=== PATIENT | male | born 1965 | race Caucasian/White ===

== ENCOUNTER 2019-06-21 02:07 | Day surgery (SDC) | payer OTHER, MEDICAID, SELFPAY ==
[2019-06-20 12:35] VITALS: BMI 29.5
[2019-06-21 06:13] VITALS: BP 130/71; PULSE 84; RESP 18; TEMP 36.3; O2SAT 97; BMI 28.6
[2019-06-21] MEDS: LACTATED RINGERS 1,000 ML 150 ML IV CONT (06:46)
--- NOTE | 2019-06-21 06:49 | WPDANESEPPF ---
Anes - Initial Pre Proc Eval Procedure: Operation Date: 06/21/19 07:30 Proposed Procedures p Colonoscopy - Brandt Mahajan MD Date/Time: 06/21/19 06:49 Surgeon: Brandt Mahajan MD Pre Op Diagnosis: GI bleed, anemia Patient Data Age: 54 Gender: M Height: 6 ft 3 in Weight: 104 kg Last Vital Signs Temp 36.3 C L 06/21/19 06:13 Pulse 84 06/21/19 06:13 Resp 18 06/21/19 06:13 BP 130/71 06/21/19 06:13 Pulse Ox 97 06/21/19 06:13 Allergies Allergy/AdvReac Type Severity Reaction Status Date / Time No Known Allergies Allergy Verified 06/21/19 06:12 Home Medications Medication Instructions Recorded Confirmed Type amlodipine 10 mg PO DAILY 06/21/19 06/21/19 History lisinopril-hydrochlorothiazide 1 tablet PO DAILY 06/21/19 06/21/19 History Patient hx anesthesia problems: none Family hx anesthesia problems: none [facility] Past Medical History Medical History Hypertension Anes - Eval Final PreProcedure Day of Procedure 06/21/19 06:49 Patient weight: overweight Heart: regular rate and rhythm Lungs: clear to auscultation Airway: Mallampati scale class 1 Neurological: alert and oriented Last oral intake: >/= 8 hours ASA classification: II Emergent: no Anesthetic plan: proceed Anesthesia type and monitoring: general GIVS and standard monitoring Informed Consent: The patient's anesthetic plan and its attendant risks and benefits were discussed with the patient/family/POA. Questions were solicited and answers provided to the satisfaction of the patient/family/POA.
--- NOTE | 2019-06-21 07:05 | PM.HPGS ---
History of Present Illness History of Present Illness Consent: Risks, benefits, and alternatives have been discussed and questions answered. Patient agrees to proceed with procedure. Chief complaint: GI bleed, anemia Narrative: Dajuan Manzo is a 54 year old male REFERRED BECAUSE OF SEVERE BLOOD LOSS ANEMIA. HE WAS FEELING SOMEWHAT TIRED AND BLOOD WORK REVEALED THAT HIS HEMOGLOBIN WAS DOWN TO 7. THIS WAS ON JUNE 07 A FEW DAYS LATER IT WAS DOWN TO 6.2. MCV IS ALSO QUITE LOW AT 67. He denies anorexia nausea dysphagia heartburn or change in bowel habits. He denies seen blood in the stools or having black or tarry stools. [facility] Past Medical History Medical History Hypertension Meds Home Medications and Allergies Home Medications Medication Instructions Recorded Confirmed Type amlodipine 10 mg PO DAILY 06/21/19 06/21/19 History lisinopril-hydrochlorothiazide 1 tablet PO DAILY 06/21/19 06/21/19 History Allergies Allergy/AdvReac Type Severity Reaction Status Date / Time No Known Allergies Allergy Verified 06/21/19 06:12 Vital Signs Vital Signs - 24 hr 06/21/19 06:13 Temperature 36.3 C L Pulse Rate 84 Respiratory Rate 18 Blood Pressure 130/71 Pulse Oximetry 97 Exam Resp: Auscultation: clear to auscultation bilaterally Cardio: Rate: regular rate Rhythm: regular rhythm GI: GI Palp: Yes Soft to palpation and No Tenderness to palpation present (GI) Assessment and Plan Assessment and plan (1) Anemia due to acute blood loss: Code(s): D62 - Acute posthemorrhagic anemia Status: Acute Assessment and Plan: Colonoscopy with possible biopsy or polypectomy or cautery or injection of substances.
[2019-06-21 07:46] VITALS: BP 81/31; PULSE 62; RESP 17; O2SAT 100
[2019-06-21 07:57] VITALS: BP 84/38; PULSE 64; RESP 16; O2SAT 100
[2019-06-21 08:06] VITALS: BP 92/48; PULSE 70; RESP 15; O2SAT 100
== END 2019-06-21 08:18 | disposition home or self-care (01) ==
PROVIDERS: PCP Internal Medicine; Visit Provider Internal Medicine Gastroenterology
PROC: 0DJD8ZZ Inspection of Lower Intestinal Tract, Via Natural or Artificial Opening Endoscopic (ICD-10-PCS; CPT 45378; principal; 2019-06-21 07:30)
DX: C18.2 Malignant neoplasm of ascending colon (principal); D12.4 Benign neoplasm of descending colon; K62.1 Rectal polyp; D50.0 Iron deficiency anemia secondary to blood loss (chronic); I10 Essential (primary) hypertension
CPT/HCPCS: 45385; 45381; 45380; 88304; 88305; J2704; J7120

== ENCOUNTER 2019-06-28 11:29 | Outpatient (CLI) | payer OTHER, MEDICAID, SELFPAY ==
--- NOTE | ~2019-06-28 | CT_ITS ---
EXAMINATION: CT abdomen pelvis w con DATE: 06/28/2019 12:16 INDICATION: Colon cancer. TECHNIQUE: Computed tomography (CT) of the abdomen and pelvis was performed with 100 mL Omnipaque 350 intravenous contrast. Automated exposure control and iterative reconstruction technique were employe d. The dose-length product was 778.63 mGy-cm. COMPARISON: None. FINDINGS: The visualized portions of the lung bases demonstrate mild atelectasis. A calcified right l len nodule and calcified right hilar lymph nodes are consistent with old granulomatous disease. No pl eural effusion. The heart size is normal. No pericardial effusion. The liver and spleen are normal. T here are gallstones in the gallbladder, which is normal in size. The pancreas and adrenal glands are normal. There is cortical thinning of the kidneys. There is a 5 mm cyst in right kidney. The prostate is mildly enlarged. There are no dilated loops of bowel. The appendix is normal. There are no pathol ogically enlarged lymph nodes. There is no free intraperitoneal fluid. There is mild thoracic spondyl osis and moderate lumbar spondylosis. IMPRESSION: 1. No evidence of metastatic disease. Reviewed, dictated and finalized at location A.
[2019-06-28 12:02] LABS: Estimated Glomerular Filt Rate > 60
== END 2019-06-28 11:30 | disposition home or self-care (01) ==
PROVIDERS: PCP Physician Assistant Medical; Visit Provider Internal Medicine Gastroenterology
DX: C18.9 Malignant neoplasm of colon, unspecified (principal)
CPT/HCPCS: 36415; 74177; Q9967

== ENCOUNTER 2019-07-05 14:36 | Inpatient (IN) | payer OTHER, MEDICAID, SELFPAY ==
[2019-07-03 12:51] VITALS: BMI 29.5
[2019-07-05] VITALS (10 sets, daily range): BP systolic 122–149; BP diastolic 71–91; PULSE 63–102; RESP 12–20; TEMP 36.1–37.1; O2SAT 100
--- NOTE | 2019-07-05 09:38 | ECG_ITS ---
Measurements Intervals [place] Rate: 84 P: 55 SD: 156 QRS: 53 QRSD: 88 T: 39 QT: 391 QTc: 463 Interpretive Statements SINUS RHYTHM NORMAL ECG Electronically Signed On 07-05-2019 11:20:02 CDT by Sam Teresa D.O.
[2019-07-05] MEDS: LACTATED RINGERS 1,000 ML 30 ML IV CONT ×2 (10:15→13:35)
--- NOTE | 2019-07-05 10:58 | WPDHPUPDATE1 ---
History and Physical Update Update Date/Time: 07/05/19 10:58 History and Physical has been reviewed, including an updated exam of the patient. There are NO changes in the patient's condition. Risks, benefits, and alternatives have been discussed and questions answered. Patient agrees to proceed with procedure.
--- NOTE | 2019-07-05 11:03 | WPDANESEPPF ---
Anes - Initial Pre Proc Eval Procedure: Operation Date: 07/05/19 11:30 Proposed Procedures p Hand Assisted Laparoscopic Right Hemicolectomy - Cb Moreau DO Date/Time: 07/05/19 11:03 Surgeon: Cb Moreau DO Pre Op Diagnosis: Ascending Colon Ca Patient Data Age: 54 Gender: M Height: 6 ft 3 in Weight: 103.5 kg Last Vital Signs Temp 97.6 F 07/05/19 09:36 Pulse 102 H 07/05/19 09:36 Resp 20 07/05/19 09:36 BP 129/76 07/05/19 09:36 Pulse Ox 100 07/05/19 09:36 Allergies Allergy/AdvReac Type Severity Reaction Status Date / Time No Known Allergies Allergy Verified 07/05/19 10:34 Home Medications Medication Instructions Recorded Confirmed Type amlodipine 10 mg PO DAILY 06/21/19 07/05/19 History lisinopril-hydrochlorothiazide 1 tablet PO DAILY 06/21/19 07/05/19 History ferrous sulfate [Iron (ferrous 650 mg PO DAILY 07/03/19 07/05/19 History sulfate)] Patient hx anesthesia problems: none Family hx anesthesia problems: none Anes - Eval Final PreProcedure Day of Procedure 07/05/19 11:03 Patient weight: overweight Heart: regular rate and rhythm Lungs: clear to auscultation Airway: Mallampati scale class II Neurological: alert and oriented Last oral intake: >/= 8 hours ASA classification: II Emergent: no Anesthetic plan: proceed Anesthesia type and monitoring: general ETT and standard monitoring Informed Consent: The patient's anesthetic plan and its attendant risks and benefits were discussed with the patient/family/POA. Questions were solicited and answers provided to the satisfaction of the patient/family/POA.
[2019-07-05] MEDS: ceFAZolin 2 GM/D5W 50 ML 2 GM/50 ML BAG IVPB (11:27)
[2019-07-05] MEDS: metroNIDAZOLE 500 MG/ISO 100ML 500 MG/100 ML BAG 100 MG IVPB (12:08)
[2019-07-05] MEDS: IBUPROFEN IV 800 MG/200 ML 800 MG/200 ML BAG 400 MG IVPB (12:20)
--- NOTE | 2019-07-05 13:30 | PM.PROC ---
Procedure Note - Detailed Date of procedure: 07/05/19 Pre-op diagnosis: Ascending Colon Ca Post-op diagnosis: same Procedure performed: Hand assisted laparoscopic right hemicolectomy with ileocolic anastomosis Description of procedure: Procedure as well as risks benefits and alternatives were explained to the patient. Written consent was obtained and placed in chart prior to procedure. Patient was brought back to surgical suite. He was placed supine on operating table. Time-out was done to confirm patient procedure. He was then intubated by the anesthesia department. His abdomen was prepped and draped in sterile fashion using chlorhexidine prep. A 7 centimeter vertical incision was made just superior to the umbilicus using a 15 blade scalpel. Electrocautery was used for hemostasis and for dissection down through Cornelia's fascia. The linea alba was identified, and incised using electrocautery. Two [place] clamps were used to lift the fascia anteriorly, and the peritoneum was then entered using electrocautery. The abdomen was inspected and no acute abnormalities were noted. The wound protector was placed at this incision, and the GelPort was applied with a 5 millimeter port placed through it. Carbon dioxide insufflation was used to create a pneumoperitoneum. The camera was inserted and the abdominal cavity was inspected. The tattooed region was identified on the proximal ascending colon, and no other abnormalities were noted. The patient was placed in Trendelenburg position and rotated slightly to the left. A 5 millimeter incision was made in the lower midline and a 5 millimeter trocar was inserted under direct visualization. Another 5 millimeter incision was made in the left lower quadrant, and a 5 millimeter trocar was inserted under direct visualization. A transversus abdominis plane block with Exparel was performed under laparoscopic visualization bilaterally. After carefully inspecting the abdominal cavity, I began my dissection from a medial to lateral direction along the ileocolic pedicle. The cecum was tented anteriorly and laterally and this allowed me to visualize the ileocolic pedicle. The medial side and inferior side of the peritoneum was scored using hook electrocautery and the retroperitoneal plane was entered. Careful dissection was performed using hook electrocautery in this relatively avascular plane. The duodenum was identified and swept posteriorly. I then continued to dissect proximally along the ileocolic pedicle. I isolated the ileocolic vein and artery individually and performed a high ligation using bipolar cautery. Hemostasis appeared adequate. I then continued the medial to lateral dissection maintaining this avascular plane. I also dissected along the transverse colon to the right side all the way to the level of the hepatic flexure. The terminal ileum and appendix were then retracted medially and the lateral peritoneal attachments were taken down using hook electrocautery. The root of the mesentery was then carefully taken down proximally to allow adequate mobilization of the small bowel for our anastomosis. The lateral peritoneal attachments of the ascending colon were then taken down using hook electrocautery. The hepatic flexure was taken down using ligasure bipolar cautery. Once this was completed I gained adequate mobilization of the entire ascending and proximal transverse colon to exteriorize and perform our resection and anastomosis. The patient was flattened out in bed, and the cecum was grasped and delivered through the wound protector. The pneumoperitoneum was released. I carefully delivered the entire ascending and proximal transverse colon out through the hand port incision. The specimen was inspected and appeared to have adequate mobilization beyond the tattoo to perform our resection. The transverse colon was cleared of the epiploic appendages and omentum and a NETTA 75 millimeter blue load stapler was advance
--- NOTE | 2019-07-05 14:22 | SUR.PHASEI ---
3152 SPOKE WITH PTS SISTER DURAN PER PHONE- UPDATE GIVEN. 3RD MED/SURG PHONE # GIVEN TO HER.
[2019-07-05] MEDS: LACTATED RINGERS 1,000 ML 100 ML IV CONT (16:10)
[2019-07-05] MEDS: ACETAMINOPHEN 500 MG TABLET 1000 MG PO ×2 (17:08→23:36)
[2019-07-05] MEDS: ENOXAPARIN 30 MG/0.3 ML SYRINGE SUB-Q (20:32)
[2019-07-06 02:00] VITALS: BP 151/74; PULSE 77; RESP 16; TEMP 37.2; O2SAT 99
[2019-07-06] MEDS: LACTATED RINGERS 1,000 ML 100 ML IV CONT (02:12)
[2019-07-06] MEDS: ACETAMINOPHEN 500 MG TABLET 1000 MG PO (05:53)
[2019-07-06 06:00] VITALS: BP 145/74; PULSE 79; RESP 6; TEMP 36.3; O2SAT 98
[2019-07-06 06:25] LABS: Basophils Percent Auto 0.2 % (0.2-1.2); Hematocrit 26.7 % (42.0-52.0); Hemoglobin 7.8 g/dL (14.0-18.0); Immature Granulocyte Absolute 0.09 K/mm3 (0.00-0.031); Immature Granulocyte Percent A 0.7 % (0-0.5); Lymphocytes Absolute Auto 1.25 K/mm3 (0.9-3.2); Lymphocytes Percent Auto 9.1 % (18.3-44.2); Mean Corpuscular HGB Conc 29.2 g/dl (32-36); Mean Platelet Volume 9.7 fl (7.4-10.4); Monocytes Percent Auto 7.4 % (2.6-8.5); Neutrophils Absolute Auto 11.4 K/mm3 (1.3-6.7); Neutrophils Percent Auto 82.6 % (45.5-73.1); Platelet Count Result 524 k/mm3 (150-375); Red Blood Count 3.71 M/mm3 (4.6-6.20); Red Cell Distribution Width 22.5 % (11.5-14.5); White Blood Count 13.8 K/mm3 (4.5-10.0)
[2019-07-06 06:37] LABS: Blood Urea Nitrogen 13 mg/dL (9-20); Calcium 8.7 mg/dL (8.4-10.2); Carbon Dioxide 26 mmol/L (22-30); Chloride 99 mmol/L (98-107); Estimated CRCL calculation 91 ml/min; Estimated Glomerular Filt Rate > 60; Glucose 119 mg/dL (75-110); Potassium 4.2 mmol/L (3.4-5.0); Sodium 132 mmol/L (137-145)
--- NOTE | 2019-07-06 07:57 | PM.PNGS ---
Progress Note: A&P Assessment and Plan (1) Anemia due to chronic blood loss: Code(s): D50.0 - Iron deficiency anemia secondary to blood loss (chronic) Status: Acute Assessment and Plan: Hemoglobin 7.8 and no hemodynamic affects. Will recheck CBC in a.m. tomorrow. (2) Ascending colon malignant neoplasm: Code(s): C18.2 - Malignant neoplasm of ascending colon Status: Acute Assessment and Plan: Doing well postop day 1. After right hemicolectomy, laparoscopic assisted. Encouraged, IS, walk in the hallway, and liquid diet. Told patient he could advance diet further once he has a bowel movement. Subjective Subjective Date/Time Seen: 07/06/19 07:57 Pt. denies any problems. No flatus or BM yet. Tolerating clear liquids. Review of Systems Constitutional: Constitutional: Reports no additional constitutional complaints ENT: Reports other (Mucous Membranes moist.) Cardiovascular: Cardiovascular: Denies dyspnea Respiratory: Respiratory: Denies pain on inspiration and Denies dyspnea Gastrointestinal: Gastrointestinal: Reports abdominal pain (mild, incisional) Musculoskeletal: Musculoskeletal: Reports other (No calf swelling or edema) Integumentary/Breasts: Skin/Breast: Reports system reviewed and no additional complaints, except as docu Exam Const: General: cooperative, no acute distress, alert and awake Orientation/consciousness: patient oriented x3 HENMT: Mouth: Yes moist mucous membranes Neck: Neck: normal visual inspection Chest: Chest palpation & inspection: normal inspection of the chest Resp: Effort & Inspection: normal respiratory effort Auscultation: clear to auscultation bilaterally Cardio: Jugular venous distension: no JVD Rate: regular rate Rhythm: regular rhythm GI: Inspection: incision ( All 3 incisions clean and dry with surgical glue in place. ) Auscultation: normal bowel sounds Rectal Exam: deferred Other: no erythema surrounding incisions. Neuro: General: patient oriented x3 and moves all extremities Speech: normal speech Extrem: General: normal exam except as noted Psych: Mental Status: mental status grossly normal Speech and movement: Normal speech and movement present Affect: normal affect Thought content: Yes Normal thought content present Objective Data Vital Signs Vital Signs: Vital Signs - 24 hr 07/05/19 09:36 07/05/19 13:35 07/05/19 13:50 Temperature 36.4 C 36.1 C L Pulse Rate 102 H 69 64 Respiratory Rate 20 12 12 Blood Pressure 129/76 145/91 H 136/80 Pulse Oximetry 100 100 100 07/05/19 14:05 07/05/19 14:20 07/05/19 14:35 Temperature 37.0 C Pulse Rate 63 68 74 Respiratory Rate 12 14 14 Blood Pressure 135/80 139/86 128/75 Pulse Oximetry 100 100 100 07/05/19 14:50 07/05/19 15:05 07/05/19 18:19 Temperature 37.1 C 36.4 C Pulse Rate 69 65 70 Respiratory Rate 16 15 14 Blood Pressure 122/79 124/74 127/71 Pulse Oximetry 100 100 100 07/05/19 22:00 07/06/19 02:00 07/06/19 06:00 Temperature 37.0 C 37.2 C 36.3 C L Pulse Rate 94 77 79 Respiratory Rate 16 16 6 L Blood Pressure 149/86 H 151/74 H 145/74 H Pulse Oximetry 100 99 98 Intake/Output Intake/Output: Intake & Output 07/03/19 07/04/19 07/05/19 07/06/19 23:59 23:59 23:59 23:59 Intake Total 1900 1928 Output Total 1450 Balance 1900 478 Meds/Results Medications: Active Medications Generic Name Dose Route Start Last Admin Trade Name Gonzalo PRN Reason Stop Dose Admin Acetaminophen 1,000 mg 07/05/19 18:00 07/06/19 05:53 Tylenol Tablet PO 1,000 mg Q6HR RY Administration Amlodipine Besylate 10 mg 07/06/19 09:00 Norvasc PO 08/05/19 09:01 DAILY [facility] Enoxaparin Sodium 30 mg 07/05/19 21:00 07/05/19 20:32 Lovenox SUB-Q 30 mg Q12HR RY Administration Hydrochlorothiazide 12.5 mg 07/06/19 09:00 Hydrochlorothiazide PO 08/05/19 09:01 DAILY [facility] Hydromorphone HCl 1 mg 07/05/19 14:36 Dilaudid Inj IV
[2019-07-06] MEDS: ENOXAPARIN 30 MG/0.3 ML SYRINGE SUB-Q ×2 (08:49→20:37)
[2019-07-06] MEDS: hydroCHLOROthiazide 12.5 MG CAPSULE PO (08:49)
[2019-07-06] MEDS: AMLODIPINE BESYLATE 5 MG TABLET 10 MG PO (08:50)
[2019-07-06] MEDS: lisinopriL 20 MG TABLET PO (08:50)
--- NOTE | 2019-07-06 09:20 | WPDANESPN ---
Anes - Prog Note Post-Op Date/Time: 07/06/19 09:20 Cardiovascular status: normal Respiratory status: normal Airway patency: baseline Mental status: baseline Post-Op hydration status: normal Vital Signs: Last Vital Signs Temp 36.3 C L 07/06/19 06:00 Pulse 79 07/06/19 06:00 Resp 6 L 07/06/19 06:00 BP 145/74 H 07/06/19 06:00 Pulse Ox 98 07/06/19 06:00 I/O: Intake & Output 07/05/19 07/06/19 07/06/19 23:59 07:59 15:59 Intake Total 1150 1928 Output Total 1450 Balance 1150 478 Laboratory Tests 07/06/19 05:37 07/06/19 05:37 07/05/19 07/06/19 07/06/19 09:54 05:37 05:37 WBC 13.8 H RBC 3.71 L Hgb 7.8 L Hct 26.7 L MCV 72.0 L MCH 21.0 L MCHC 29.2 L RDW 22.5 H Plt Count 524 H MPV 9.7 Immature Gran % (Auto) 0.7 H Neut % (Auto) 82.6 H Lymph % (Auto) 9.1 L [place] % (Auto) 7.4 Eos % (Auto) 0.0 Baso % (Auto) 0.2 Lymph # (Auto) 1.25 [place] # (Auto) 1.0 H Eos # (Auto) 0.0 Baso # (Auto) 0.0 Abs Immat Gran (auto) 0.09 H Absolute Neuts (auto) 11.4 H Absolute Nucleated RBC 0.0 Nucleated RBC % 0.0 Sodium 132 L Potassium 4.2 Chloride 99 Carbon Dioxide 26 BUN 13 Creatinine 1.00 Estim Creat Clear Calc 91 Estimated GFR > 60 Glucose 119 H Calcium 8.7 Blood Type B Positive Antibody Screen Negative Post-procedural complaints: none Patient Feedback: Patient satisfied with anesthetic care.
[2019-07-06 10:00] VITALS: BP 140/73; PULSE 79; RESP 16; TEMP 37.3; O2SAT 99
[2019-07-06 14:00] VITALS: BP 123/73; PULSE 87; RESP 16; TEMP 37.1; O2SAT 100
[2019-07-06 18:00] VITALS: BP 152/85; PULSE 61; RESP 16; TEMP 36.5; O2SAT 100
[2019-07-06 22:00] VITALS: BP 112/66; PULSE 76; RESP 16; TEMP 36.7; O2SAT 98
[2019-07-07 02:00] VITALS: BP 103/61; PULSE 64; RESP 16; TEMP 36.7; O2SAT 97
[2019-07-07 05:48] LABS: Blood Urea Nitrogen 13 mg/dL (9-20); Calcium 8.9 mg/dL (8.4-10.2); Carbon Dioxide 29 mmol/L (22-30); Chloride 96 mmol/L (98-107); Estimated CRCL calculation 91 ml/min; Estimated Glomerular Filt Rate > 60; Glucose 98 mg/dL (75-110); Sodium 132 mmol/L (137-145)
[2019-07-07 05:57] LABS: Hematocrit 27.2 % (42.0-52.0); Hemoglobin 7.9 g/dL (14.0-18.0); Mean Corpuscular Hemoglobin 21.2 pg (26-34); Mean Corpuscular Volume 72.9 fl (80-100); Mean Platelet Volume 9.3 fl (7.4-10.4); Platelet Count Result 457 k/mm3 (150-375); Red Blood Count 3.73 M/mm3 (4.6-6.20); Red Cell Distribution Width 22.9 % (11.5-14.5); White Blood Count 9.8 K/mm3 (4.5-10.0)
[2019-07-07 06:00] VITALS: BP 116/64; PULSE 77; RESP 16; TEMP 36.7; O2SAT 96
[2019-07-07] MEDS: hydroCHLOROthiazide 12.5 MG CAPSULE PO (08:22)
[2019-07-07] MEDS: lisinopriL 20 MG TABLET PO (08:22)
[2019-07-07] MEDS: AMLODIPINE BESYLATE 5 MG TABLET 10 MG PO (08:22)
[2019-07-07] MEDS: ENOXAPARIN 30 MG/0.3 ML SYRINGE SUB-Q (08:23)
--- NOTE | 2019-07-07 08:50 | PM.DS ---
DS: Diagnosis Admitting Diagnosis Admitting Diagnosis: Ascending colon cancer Discharge Diagnosis (1) Ascending colon malignant neoplasm: Code(s): C18.2 - Malignant neoplasm of ascending colon Status: Acute (2) Anemia due to chronic blood loss: Code(s): D50.0 - Iron deficiency anemia secondary to blood loss (chronic) Status: Acute (3) Hypertension: Qualifiers: Hypertension type: essential hypertension Qualified Code(s): I10 - Essential (primary) hypertension Code(s): I10 - Essential (primary) hypertension Status: Acute DS: Summary Hospital Course Reason for hospitalization: Ascending colon cancer Hospital Course: This is a 54-year-old man who recently underwent colonoscopy and was found to have a malignant-appearing mass in the proximal ascending colon. Biopsies confirmed adenocarcinoma. His preoperative CT abdomen and pelvis showed no evidence of metastases and his preoperative CEA level was 1.5. He presented for hand assisted laparoscopic right hemicolectomy. Surgery was uncomplicated and he was admitted to the hospital postoperatively. He was started on clear liquid diet and pain was controlled with IV pain meds. On postop day 1 he was doing well and tolerating clear liquids without any bloating or nausea. He was advanced to a full liquid diet and transitioned to oral pain meds. On postop day 2 he was advanced to a soft regular diet. He was passing flatus but had not had a bowel movement yet. He was tolerating his diet and ambulating with minimal difficulty. He was discharged on postop day 2. Pathology is still pending at the time of discharge. Status at Discharge Functional status at discharge: independent ambulation Overall status at discharge: patient is progressing back to baseline Time Spent with Patient Time attestation: Total time spent providing and/or coordinating discharge services: Time spent: Less than 30 minutes Exam Const: General: comfortable and no acute distress Resp: Effort & Inspection: normal respiratory effort Auscultation: clear to auscultation bilaterally Cardio: Rate: regular rate Rhythm: regular rhythm GI: Inspection: non-distended GI Palp: Yes Soft to palpation Auscultation: normal bowel sounds DS: Data Data Completed and Pending Pending studies at discharge: Pending at discharge 07/05/19 12:50 Surgical [PTH] Routine Labs on day of discharge: Labs from last 24 hours 07/07/19 07/07/19 05:16 05:16 WBC 9.8 RBC 3.73 L Hgb 7.9 L Hct 27.2 L MCV 72.9 L MCH 21.2 L MCHC 29.0 L RDW 22.9 H Plt Count 457 H MPV 9.3 Sodium 132 L Potassium 4.0 Chloride 96 L Carbon Dioxide 29 BUN 13 Creatinine 1.00 Estim Creat Clear Calc 91 Estimated GFR > 60 Glucose 98 Calcium 8.9 Discharge Plan Discharge Attending physician on discharge: Cb Moreau Discharging Clinician: Cb Moreau Patient Disposition: Home, Self-Care Activity: other - see discharge instructions Diet: regular Wound Care Instructions: follow printed instructions Discharge Instructions: May shower, no bathing or soaking for [address] in 3 days or when no longer taking narcotic pain meds. No lifting > 10 pounds x6 weeks. If no bowel movement x 48 hours, take OTC laxative like Milk of Magnesia or MiraLax. Patient Instructions: Antibiotic Form Stand Alone Forms: General Discharge Information Follow-up/Referrals: Cb Moreau DO [Physician] - 2 Weeks Discharge Medications: New hydrocodone-acetaminophen [[place]] 5-325 mg tablet 1 - 2 tablet PO Q4H PRN (Reason: pain) Qty: 10 RF: 0 Continued ferrous sulfate [Iron (ferrous sulfate)] 325 mg (65 mg iron) Tablet 650 mg PO DAILY RF: 0 lisinopril-hydrochlorothiazide 20-12.5 mg Tablet 1 tablet PO DAILY RF: 0 amlodipine capsule 10 mg PO DAILY RF: 0 Date of admission: 07/05/19 14:36 Primary Car
== END 2019-07-07 10:25 | disposition home or self-care (01) | DRG 330 ==
LOC: ANH3MEDSUR 14:42
PROVIDERS: Admitting Provider Surgery; PCP Physician Assistant Medical; Visit Provider Surgery
PROC: 0DTF4ZZ Resection of Right Large Intestine, Percutaneous Endoscopic Approach (ICD-10-PCS; CPT 44204; principal; 2019-07-05 11:30)
DX: C18.2 Malignant neoplasm of ascending colon (principal); C77.2 Secondary and unspecified malignant neoplasm of intra-abdominal lymph nodes; D50.0 Iron deficiency anemia secondary to blood loss (chronic); I10 Essential (primary) hypertension
CPT/HCPCS: 36415; 80048; 85025; 85027; 86850; 86900; 86901; 88309; 93005; A9270; C9290; J0131; J0690; J1100; J1170; J1650; J1741; J2250; J2405; J2704; J2710; J3010; J7120

== ENCOUNTER 2019-07-27 11:52 | Outpatient (CLI) | payer OTHER, MEDICAID, SELFPAY ==
--- NOTE | ~2019-07-27 | XR_ITS ---
XR chest 2V DATE: 07/27/2019 12:24 INDICATION: Malignant neoplasm of ascending colon TECHNIQUE: PA and lateral views COMPARISON: None FINDINGS: Normal heart size. No hilar or mediastinal enlargement. No pulmonary infiltrate or consolid ation, pleural effusion or pulmonary vascular congestion or pneumothorax. Degenerative spurring of the thoracic spine. IMPRESSION: No active cardiopulmonary disease Reviewed, dictated and finalized at location A.
== END 2019-07-27 11:53 | disposition home or self-care (01) ==
PROVIDERS: PCP Physician Assistant Medical; Visit Provider Internal Medicine Hematology & Oncology
DX: C18.2 Malignant neoplasm of ascending colon (principal)
CPT/HCPCS: 71046

== ENCOUNTER 2019-07-31 06:18 | Outpatient (CLI) | payer OTHER, SELFPAY | END 2019-07-31 06:19 | disposition home or self-care (01) | PROVIDERS: PCP Physician Assistant Medical; Visit Provider Surgery | DX: Z01.818 Encounter for other preprocedural examination (principal); Z11.59 Encounter for screening for other viral diseases | CPT/HCPCS: 87635; C9803; U0003 ==

== ENCOUNTER 2019-07-31 08:25 | Outpatient (CLI) | payer OTHER, MEDICAID, SELFPAY ==
[2019-07-31 09:20] LABS: Basophils Absolute Auto 0.1 K/mm3 (0.0-0.1); Eosinophils Absolute Auto 0.7 K/mm3 (0-0.3); Eosinophils Percent Auto 5.7 % (0-4.4); Hemoglobin 9.5 g/dL (14.0-18.0); Immature Granulocyte Absolute 0.11 K/mm3 (0.00-0.031); Lymphocytes Absolute Auto 2.98 K/mm3 (0.9-3.2); Lymphocytes Percent Auto 26.1 % (18.3-44.2); Mean Corpuscular HGB Conc 30.6 g/dl (32-36); Mean Corpuscular Hemoglobin 23.5 pg (26-34); Mean Corpuscular Volume 76.5 fl (80-100); Mean Platelet Volume 10.2 fl (7.4-10.4); Monocytes Absolute Auto 0.9 K/mm3 (0.1-0.6); Monocytes Percent Auto 7.7 % (2.6-8.5); Neutrophils Absolute Auto 6.7 K/mm3 (1.3-6.7); Neutrophils Percent Auto 58.5 % (45.5-73.1); Platelet Count Result 444 k/mm3 (150-375); Red Blood Count 4.05 M/mm3 (4.6-6.20); Red Cell Distribution Width 23.1 % (11.5-14.5); White Blood Count 11.4 K/mm3 (4.5-10.0)
[2019-07-31 09:29] LABS: INR 0.9; Prothrombin Time 11.5 Seconds (11.1-14.7)
[2019-07-31 09:30] LABS: Partial Thromboplastin Time 23.7 SECONDS (22.3-36.8)
== END 2019-07-31 08:26 | disposition home or self-care (01) ==
LOC: ANHSURGERY 08:26
PROVIDERS: PCP Physician Assistant Medical; Visit Provider Surgery
DX: Z01.818 Encounter for other preprocedural examination (principal); D64.9 Anemia, unspecified; C18.9 Malignant neoplasm of colon, unspecified
CPT/HCPCS: 36415; 85025; 85610; 85730

== ENCOUNTER 2019-08-02 01:04 | Day surgery (SDC) | payer OTHER, SELFPAY ==
[2019-07-28 16:26] VITALS: BMI 28.8
--- NOTE | ~2019-08-02 | XR_ITS ---
EXAMINATION: XR chest port-a-cath/central DATE: 08/02/2019 08:22 INDICATION: Status post port catheter placement TECHNIQUE: frontal view of the chest was obtained. COMPARISON: Chest radiograph dated 07/27/2019 FINDINGS: Right internal jugular central venous port catheter with distal tip at the caudal superior vena cava. Lungs remain clear with no focal airspace opacities, pulmonary edema, pleural effusion or pneumothor ax. The cardiomediastinal silhouette is normal. Mild thoracic spondylosis. IMPRESSION: 1. No acute cardiopulmonary disease post right internal jugular central venous port catheter placemen t. Reviewed, dictated and finalized at location A. IMPRESSION: 1. No acute cardiopulmonary disease post right internal jugular central venous port catheter placement.
--- NOTE | ~2019-08-02 | XR_ITS ---
EXAMINATION: XR fl guide central line place DATE: 08/02/2019 11:59 INDICATION: Port placement. TECHNIQUE: 2 intraoperative fluoroscopic views of the chest were obtained. I was not present. Fluoros copy exposure time was 11 seconds. COMPARISON: Chest single view 08/02/2019 FINDINGS: There is a right internal jugular port with tip in right atrium. IMPRESSION: 1. Port tip in right atrium. Reviewed, dictated and finalized at location E.
[2019-08-02] MEDS: LACTATED RINGERS 1,000 ML 30 ML IV CONT ×2 (06:29→08:12)
[2019-08-02] MEDS: IBUPROFEN IV 800 MG/200 ML 800 MG/200 ML BAG 400 MG IVPB (06:35)
[2019-08-02 06:37] VITALS: BP 124/75; PULSE 70; RESP 20; TEMP 36.4; O2SAT 100
--- NOTE | 2019-08-02 07:06 | WPDANESEPPF ---
Anes - Initial Pre Proc Eval Procedure: Operation Date: 08/02/19 07:30 Proposed Procedures p Insertion Lauren Cath - Cb Moreau DO Date/Time: 08/02/19 07:06 Surgeon: Cb Moreau DO Pre Op Diagnosis: ascending colon CA Patient Data Age: 54 Gender: M Height: 6 ft 3 in Weight: 107.7 kg Last Vital Signs Temp 36.4 C L 08/02/19 06:37 Pulse 70 08/02/19 06:37 Resp 20 08/02/19 06:37 BP 124/75 08/02/19 06:37 Pulse Ox 100 08/02/19 06:37 Allergies Allergy/AdvReac Type Severity Reaction Status Date / Time No Known Allergies Allergy Verified 07/28/19 16:26 Home Medications Medication Instructions Recorded Confirmed Type lisinopril-hydrochlorothiazide 1 tablet PO BID 06/21/19 07/28/19 History ferrous sulfate [Iron (ferrous 1,300 mg PO DAILY 07/03/19 07/28/19 History sulfate)] amlodipine 10 mg PO DAILY 07/28/19 07/28/19 History Patient hx anesthesia problems: none Family hx anesthesia problems: none PMFSH Past Medical History Medical History Ascending colon malignant neoplasm Hypertension Surgical History Surgical History H/O inguinal hernia repair left, in 1975 Family History Family History Sibling Diabetes mellitus Social History Social History Smoking status: Never smoker Alcohol intake: never Substance use: never Gender identity (if verbalized by the patient): Male Spiritual care concerns: No Agree to blood products: Yes Anes - Eval Final PreProcedure Day of Procedure 08/02/19 07:06 Patient weight: overweight Heart: regular rate and rhythm Lungs: clear to auscultation Airway: Mallampati scale class II and special considerations poor dentition Neurological: alert and oriented Last oral intake: >/= 8 hours ASA classification: III Emergent: no Anesthetic plan: proceed Anesthesia type and monitoring: general GIVS and standard monitoring Informed Consent: The patient's anesthetic plan and its attendant risks and benefits were discussed with the patient/family/POA. Questions were solicited and answers provided to the satisfaction of the patient/family/POA.
--- NOTE | 2019-08-02 07:08 | WPDHPUPDATE1 ---
History and Physical Update Update Date/Time: 08/02/19 07:08 History and Physical has been reviewed, including an updated exam of the patient. There are NO changes in the patient's condition. Risks, benefits, and alternatives have been discussed and questions answered. Patient agrees to proceed with procedure.
[2019-08-02] MEDS: ceFAZolin 2 GM/D5W 50 ML 2 GM/50 ML BAG IVPB (07:21)
[2019-08-02] MEDS: LIDO 1%/EPINEPHRINE 1:100,000 20 ML VIAL 10 ML INFILTRATE (07:41)
[2019-08-02] MEDS: HEPARIN SODIUM, PORCINE 10,000 UNITS/10 ML VIAL 3000 UNITS IV PUSH (07:42)
[2019-08-02] MEDS: HEPARIN SODIUM 5,000 UNITS/ML VIAL 5000 UNITS IRRIGATION (07:43)
[2019-08-02 08:15] VITALS: BP 125/68; PULSE 90; RESP 14; O2SAT 95
--- NOTE | 2019-08-02 08:18 | PM.PROC ---
Procedure Note - Detailed Date of procedure: 08/02/19 Pre-op diagnosis: ascending colon CA Post-op diagnosis: same Procedure performed: Right internal jugular Port-A-Cath placement using ultrasound and fluoroscopic guidance Description of procedure: Procedure as well as risks, benefits, and alternatives were discussed with patient. Written consent was obtained and placed in chart prior to procedure. Patient was brought back to surgical suite. Was placed supine on operating table. Time-out was done confirm patient procedure. IV sedation was then administered by the Anesthesia Department. The chest and neck area was prepped and draped in sterile fashion using chlorhexidine prep. Patient was placed in Trendelenburg position. SonoSite ultrasound was used to identify the right internal jugular vein. It was visualized as a compressible vessel just lateral to the carotid artery. 1% lidocaine with epinephrine was infiltrated directly over the vessel under ultrasound guidance. An 18 gauge introducer needle was then advanced under ultrasound guidance directly into the right internal jugular vein. Dark nonpulsatile blood was aspirated. A 0.035 in guidewire was then advanced through the needle under fluoroscopic guidance. The guidewire was visualized advancing all the way down into the superior vena cava. 1% lidocaine with epinephrine was then infiltrated on the right anterior chest and along the tract up to the guidewire insertion site. A 3 cm incision was made with a 15 blade scalpel, and electrocautery was then used for dissection down through the subcutaneous tissue to the pectoral fascia. A pocket was created just inferior to the incision using blunt dissection. A small shakira incision was then also made at the insertion site at the neck. The tunneler was then advanced from the chest incision up to the neck incision and the catheter tubing was brought up through this tract. The dilator and sheath were then advanced over the guidewire under fluoroscopic visualization. The dilator and guidewire were then removed leaving the sheath in place. The catheter tubing was then advanced through the sheath under fluoroscopic guidance. The sheath was unsnapped and carefully peeled away. The catheter tubing was released underneath the neck incision. Fluoroscopy was used to confirm proper placement of the catheter tubing and no kinks along its path. The catheter was then cut to proper length and secured to the port. The port was then accessed with a Quintana needle and aspirated and flushed with heparinized saline. The port function with ease. The port was then hep-locked with Hep-Lock solution. The port was then placed within the pocket that was created, and was secured to the fascia using 3 0 Prolene simple interrupted sutures. The patient was flattened out in bed. Cornelia's fascia was reapproximated using 3 0 Vicryl simple interrupted sutures. The skin of the incisions was then approximated using 4-0 Monocryl subcuticular suture. Exofin glue was then applied on top. The patient was then awakened from anesthesia and transferred to recovery. Implants: Smart Port CT port Anesthesia: MAC and local (1% lidocaine with epinephrine) Surgeon: Cb Moreau DO Estimated blood loss (mL): 5 Complications: No immediate complications Condition: stable Disposition: same day Findings: SonoSite ultrasound was used to identify the right internal jugular vein. This was visualized as a compressible vessel just lateral to the carotid artery. An 18 gauge introducer needle was inserted under ultrasound guidance. Dark nonpulsatile blood was aspirated. Fluoroscopy was then used to guide the placement of the guidewire followed by dilator and sheath. The final fluoroscopic images demonstrated catheter tip at the distal SVC and no kinks along its path.
[2019-08-02 08:36] VITALS: BP 126/79; PULSE 68; RESP 16
== END 2019-08-02 08:50 | disposition home or self-care (01) ==
PROVIDERS: PCP Physician Assistant Medical; Visit Provider Surgery
PROC: (CPT 36561; principal; 2019-08-02 07:30)
DX: C18.2 Malignant neoplasm of ascending colon (principal); I10 Essential (primary) hypertension
CPT/HCPCS: 36561; 77001; C1788; J0690; J1100; J1644; J1741; J2250; J2405; J2704; J3010; J7030; J7120

== ENCOUNTER 2019-10-19 11:26 | Outpatient (CLI) | payer OTHER, SELFPAY ==
--- NOTE | 2019-10-19 | ECG_ITS ---
Measurements Intervals [place] Rate: 132 P: 72 MO: 140 QRS: 76 QRSD: 77 T: 62 QT: 286 QTc: 424 Interpretive Statements SINUS TACHYCARDIA ABNORMAL ECG Electronically Signed On 10-19-2019 12:51:20 CDT by Sam Teresa D.O.
== END 2019-10-19 11:27 | disposition home or self-care (01) ==
PROVIDERS: PCP Physician Assistant Medical; Visit Provider Internal Medicine Hematology & Oncology
DX: R00.0 Tachycardia, unspecified (principal); R94.31 Abnormal electrocardiogram [ECG] [EKG]
CPT/HCPCS: 93005

== ENCOUNTER 2019-10-20 12:33 | Outpatient (CLI) | payer OTHER, SELFPAY ==
[2019-10-20 13:13] LABS: Anion Gap 15.2 mmol/L (7-16); Blood Urea Nitrogen 35 mg/dL (9-20); Calcium 9.4 mg/dL (8.4-10.2); Carbon Dioxide 22 mmol/L (22-30); Chloride 98 mmol/L (98-107); Estimated Glomerular Filt Rate 58; Glucose 136 mg/dL (75-110); Potassium 4.2 mmol/L (3.4-5.0); Sodium 131 mmol/L (137-145)
[2019-10-20 13:32] LABS: Free T4 Free Thyroxine 1.54 ng/mL (0.78-2.19)
[2019-10-20 13:42] LABS: Thyroid Stimulating Hormone 0.772 uIU/mL (0.465-4.680)
== END 2019-10-20 12:34 | disposition home or self-care (01) ==
PROVIDERS: PCP Physician Assistant Medical; Visit Provider Internal Medicine Cardiovascular Disease
DX: R00.0 Tachycardia, unspecified (principal); R55 Syncope and collapse; I10 Essential (primary) hypertension
CPT/HCPCS: 36415; 80048; 84439; 84443

== ENCOUNTER 2020-02-06 07:23 | Outpatient (CLI) | payer OTHER, SELFPAY ==
--- NOTE | ~2020-02-06 | CT_ITS ---
EXAMINATION: CT chest abdomen pelvis w con DATE: 02/06/2020 08:22 INDICATION: Malignant neoplasm of colon. TECHNIQUE: Computed tomography (CT) of the chest, abdomen, and pelvis was performed with 100 mL Omnip aque 350 intravenous contrast. Automated exposure control and iterative reconstruction technique were employed. The dose-length product was 1213.53 mGy-cm. COMPARISON: CT abdomen and pelvis 06/28/19 FINDINGS: CHEST CT: The lungs demonstrate mild atelectasis. A calcified right lung nodule and calcified right hilar and m ediastinal lymph nodes are consistent with old granulomatous disease. There is a pneumatocele in righ t upper lobe. No pleural effusion. The heart size is normal. There are coronary artery calcifications . No pericardial effusion. There is mild mediastinal lymphadenopathy. There is a right internal jugul ar port with tip in right atrium. There is mild chronic anterior wedging of multiple thoracic vertebr al bodies. There is a hemangioma in T6 vertebral body. There is mild thoracic spondylosis. ABDOMEN/PELVIS CT: The liver is normal. There are gallstones in the gallbladder, which is normal in size. There is mild splenomegaly measuring 14.1 cm. The pancreas and adrenal glands are normal. There is cortical thinnin g of the kidneys. There is a 5 mm cyst in right kidney. There are changes of right hemicolectomy. The re are no pathologically enlarged lymph nodes. There are supraumbilical ventral hernias containing fa t. There is fat stranding at the root of the small bowel mesentery. There is trace pelvic ascites. Th ere is moderate right hip osteoarthritis and severe left hip osteoarthritis. There is moderate lumbar spondylosis. IMPRESSION: 1. Fat stranding at the root of the small bowel mesentery, consistent with edema versus inflammation. 2. Mild mediastinal lymphadenopathy, likely reactive. 3. Mild splenomegaly. 4. Supraumbilical ventral hernias containing fat. Reviewed, dictated and finalized at location A. PACKAGER IMPRESSION: 1. Fat stranding at the root of the small bowel mesentery, consistent with pato a versus inflammation. 2. Mild mediastinal lymphadenopathy, likely reactive. 3. Mild splenomegaly. 4. Supraumbilical ventral hernias containing fat.
[2020-02-06 08:20] LABS: Estimated Glomerular Filt Rate > 60
== END 2020-02-06 07:24 | disposition home or self-care (01) ==
PROVIDERS: PCP Physician Assistant Medical; Visit Provider Nurse Practitioner Adult Health
DX: C18.2 Malignant neoplasm of ascending colon (principal); J98.11 Atelectasis; J98.4 Other disorders of lung; K80.80 Other cholelithiasis without obstruction; R16.1 Splenomegaly, not elsewhere classified; N28.1 Cyst of kidney, acquired; M47.815 Spondylosis without myelopathy or radiculopathy, thoracolumbar region; K43.9 Ventral hernia without obstruction or gangrene
CPT/HCPCS: 71260; 74177; Q9967

== ENCOUNTER → 2020-05-17 01:35 | Outpatient (CLI) | payer OTHER, SELFPAY ==
[2020-05-18 08:28] LABS: SARS-CoV-2 RNA PCR Negative
== END ==
PROVIDERS: PCP Physician Assistant Medical; Visit Provider Internal Medicine Gastroenterology
DX: Z01.812 Encounter for preprocedural laboratory examination (principal); Z20.822 Contact with and (suspected) exposure to COVID-19
CPT/HCPCS: C9803; U0003; U0005

== ENCOUNTER 2020-05-20 01:23 | Day surgery (SDC) | payer OTHER, SELFPAY ==
[2020-05-03 10:03] VITALS: BMI 30.2
[2020-05-20 08:25] VITALS: BP 151/90; PULSE 81; RESP 18; TEMP 36.3; O2SAT 98
[2020-05-20] MEDS: LACTATED RINGERS 1,000 ML 150 ML IV CONT (08:34)
--- NOTE | 2020-05-20 09:13 | WPDANESEPPF ---
Anes - Initial Pre Proc Eval Procedure: Operation Date: 05/20/20 09:30 Proposed Procedures p Screening Colonoscopy - David Mcnamara MD Date/Time: 05/20/20 09:13 Surgeon: David Mcnamara MD Pre Op Diagnosis: Neoplasm Screening, Hx of Colon CA Patient Data Age: 55 Gender: M Height: 6 ft 3 in Weight: 106.9 kg Last Vital Signs Temp 97.3 F L 05/20/20 08:25 Pulse 81 05/20/20 08:25 Resp 18 05/20/20 08:25 BP 151/90 H 05/20/20 08:25 Pulse Ox 98 05/20/20 08:25 Allergies Allergy/AdvReac Type Severity Reaction Status Date / Time No Known Allergies Allergy Verified 05/03/20 10:00 Home Medications Medication Instructions Recorded Confirmed Type ferrous sulfate [Iron (ferrous 1,300 mg PO DAILY 07/03/19 05/03/20 History sulfate)] amlodipine 10 mg PO DAILY 07/28/19 05/03/20 History ondansetron 4 mg PO Q6H 08/22/19 05/03/20 History aspirin [Aspir-81] 81 mg PO DAILY 09/04/19 05/03/20 History loperamide [Imodium A-D] 2 mg PO Q4H PRN 09/04/19 05/03/20 History loperamide [Imodium A-D] 2 mg PO Q6H PRN 10/02/19 05/03/20 History megestrol 400 mg PO DAILY 10/02/19 05/03/20 History metoprolol tartrate 25 mg PO BID 10/30/19 05/03/20 History lisinopril 2.5 mg PO DAILY 11/13/19 05/03/20 History Patient hx anesthesia problems: none Family hx anesthesia problems: none PMFSH Past Medical History Medical History Ascending colon malignant neoplasm Hypertension Surgical History Surgical History H/O hemicolectomy H/O inguinal hernia repair left, in 1975 Family History Family History Sibling Diabetes mellitus Social History Social History Smoking status: Never smoker Alcohol intake: never Substance use: never Substance use type: does not use Living arrangements: alone Gender identity (if verbalized by the patient): Male Spiritual care concerns: No Agree to blood products: Yes Anes - Eval Final PreProcedure Day of Procedure 05/20/20 09:13 Patient weight: obese Heart: regular rate and rhythm Lungs: clear to auscultation Airway: Mallampati scale class II Neurological: alert and oriented Last oral intake: >/= 8 hours ASA classification: III Emergent: no Anesthetic plan: proceed Anesthesia type and monitoring: general GIVS and standard monitoring Informed Consent: The patient's anesthetic plan and its attendant risks and benefits were discussed with the patient/family/POA. Questions were solicited and answers provided to the satisfaction of the patient/family/POA.
--- NOTE | 2020-05-20 09:24 | PM.HPGS ---
History of Present Illness History of Present Illness Consent: Risks, benefits, and alternatives have been discussed and questions answered. Patient agrees to proceed with procedure. Chief complaint: Neoplasm Screening, Hx of Colon CA Narrative: Dajuan Manzo is a 55 year old male with ascending colon cancer s/p CHIO right hemicolectomy with ileocolic anastomosis performed on 07/05/19 and chemotherapy. Here to reassess Review of Systems Constitutional: Constitutional: Denies headache(s) and Denies weakness Eyes: Eyes: Denies blurry vision ENT: Reports Normal hearing present, Denies headache(s) and Denies neck pain Cardiovascular: Cardiovascular: Denies chest pain and Denies dyspnea Respiratory: Respiratory: Denies dyspnea Gastrointestinal: Gastrointestinal: Reports no additional gastrointestinal complaints Genitourinary: Genitourinary: Denies dysuria Musculoskeletal: Musculoskeletal: Denies neck pain Integumentary/Breasts: Skin/Breast: Denies dry skin Neurologic: Reports Normal hearing present, Denies headache(s) and Denies weakness Psychiatric: Psychiatric: Denies anxiety Endocrine: Endocrine: Denies change in body appearance Hematologic/Lymphatic: Hematologic/Lymphatic: Denies easy bleeding Allergic/Immunologic: Allergic/Immunologic: Denies urticaria PMFSH Past Medical History Medical History Ascending colon malignant neoplasm Hypertension Surgical History Surgical History H/O hemicolectomy H/O inguinal hernia repair left, in 1975 Family History Family History Sibling Diabetes mellitus Social History Social History Smoking status: Never smoker Alcohol intake: never Substance use: never Substance use type: does not use Living arrangements: alone Gender identity (if verbalized by the patient): Male Spiritual care concerns: No Agree to blood products: Yes Meds Home Medications and Allergies Home Medications Medication Instructions Recorded Confirmed Type ferrous sulfate [Iron (ferrous 1,300 mg PO DAILY 07/03/19 05/03/20 History sulfate)] amlodipine 10 mg PO DAILY 07/28/19 05/03/20 History ondansetron 4 mg PO Q6H 08/22/19 05/03/20 History aspirin [Aspir-81] 81 mg PO DAILY 09/04/19 05/03/20 History loperamide [Imodium A-D] 2 mg PO Q4H PRN 09/04/19 05/03/20 History loperamide [Imodium A-D] 2 mg PO Q6H PRN 10/02/19 05/03/20 History megestrol 400 mg PO DAILY 10/02/19 05/03/20 History metoprolol tartrate 25 mg PO BID 10/30/19 05/03/20 History lisinopril 2.5 mg PO DAILY 11/13/19 05/03/20 History Allergies Allergy/AdvReac Type Severity Reaction Status Date / Time No Known Allergies Allergy Verified 05/03/20 10:00 Vital Signs Vital Signs - 24 hr 05/20/20 08:25 Temperature 97.3 F L Pulse Rate 81 Respiratory Rate 18 Blood Pressure 151/90 H Pulse Oximetry 98 Exam Const: General: comfortable and no acute distress HENMT: General nose exam: Normal nares present Eyes: General: appearance normal, both eyes and all related structures Neck: Neck: no JVD Resp: Auscultation: clear to auscultation bilaterally Cardio: Rate: regular rate Rhythm: regular rhythm GI: Inspection: non-distended GI Palp: Yes Soft to palpation Skin: General skin exam: normal color Neuro: General: gait normal Speech: normal speech Extrem: General: normal to inspection Psych: Mental Status: mental status grossly normal Assessment and Plan Assessment and plan (1) Ascending colon malignant neoplasm: Code(s): C18.2 - Malignant neoplasm of ascending colon Status: Acute Assessment and Plan: proceed with colonoscopy
[2020-05-20 09:43] VITALS: BP 114/61; PULSE 61; RESP 17; O2SAT 98
--- NOTE | 2020-05-20 09:45 | SUR.OPER ---
Descending colon polyp not retrieved. Dr Tidwell aware.
[2020-05-20 09:53] VITALS: BP 143/80; PULSE 55; RESP 15; O2SAT 100
[2020-05-20 10:03] VITALS: BP 165/85; PULSE 53; RESP 18; O2SAT 97
== END 2020-05-20 10:10 | disposition home or self-care (01) ==
PROVIDERS: PCP Physician Assistant Medical; Visit Provider Internal Medicine Gastroenterology
PROC: 0DJD8ZZ Inspection of Lower Intestinal Tract, Via Natural or Artificial Opening Endoscopic (ICD-10-PCS; CPT 45378; principal; 2020-05-20 09:30)
DX: Z12.11 Encounter for screening for malignant neoplasm of colon (principal); K63.5 Polyp of colon; K62.1 Rectal polyp; Z98.0 Intestinal bypass and anastomosis status; K64.8 Other hemorrhoids; Z79.82 Long term (current) use of aspirin; I10 Essential (primary) hypertension; Z85.038 Personal history of other malignant neoplasm of large intestine; E66.9 Obesity, unspecified; Z68.29 Body mass index [BMI] 29.0-29.9, adult; D12.3 Benign neoplasm of transverse colon; Z92.21 Personal history of antineoplastic chemotherapy; Z90.49 Acquired absence of other specified parts of digestive tract
CPT/HCPCS: 45385; 88305; J2704; J7120

== ENCOUNTER 2020-08-19 09:52 | Outpatient (CLI) | payer OTHER, SELFPAY ==
--- NOTE | ~2020-08-19 | CT_ITS ---
EXAMINATION: CT abdomen pelvis w con DATE: 08/19/2020 10:38 INDICATION: Colon cancer TECHNIQUE: Computed tomography (CT) of the abdomen and pelvis was performed with 100 mL Omnipaque-350 intravenous contrast. Automated exposure control and iterative reconstruction technique were employe d. The dose-length product was 1104.36 mGy-cm. COMPARISON: 02/06/2020 FINDINGS: Calcified right lower lobe nodule consistent with old granulomatous disease. Heart size is normal. No pericardial or pleural effusion. Gallstones in the normal-appearing gallbladder with no abnormal wal l thickening or pericholecystic inflammatory change to suggest acute cholecystitis. Liver, spleen, pa ncreas and bilateral adrenal glands are normal. There are regions of cortical scarring at both kidney s. Unchanged 5 mm low-attenuation right renal cyst. Decrease in mild splenomegaly measuring 13.4 cm i n maximal length. Postoperative change of prior right hemicolectomy with ileocolic anastomosis in the right abdomen There is mild colonic diverticulosis with a sigmoid predominance. There is no adjacen t inflammatory change to suggest diverticulitis. No bowel obstruction. Bladder is normal. No free int raperitoneal gas or fluid. No pathologically enlarged abdominal or pelvic lymphadenopathy. A couple s mall wide mouthed fat-containing midline supraumbilical ventral hernias. Interval decrease in now jasvir y subtle groundglass opacity at the root of the mesentery likely related to either edema or inflammat ion. Moderate right and moderate to severe left hip osteoarthritis. Moderate lumbar spondylosis. Unch anged bone islands in the bilateral proximal femurs. IMPRESSION: 1. Status post right hemicolectomy for reported colon cancer. No evident metastatic disease. 2. Improvement in both mild splenomegaly and now subtle fat stranding at the root of the small bowel mesentery, the latter likely related to edema or inflammation. 3. Cholelithiasis. 4. Unchanged fat-containing supraumbilical ventral hernias. Reviewed, dictated and finalized at location A. IMPRESSION: 1. Status post right hemicolectomy for reported colon cancer. No evident metast atic disease. 2. Improvement in both mild splenomegaly and now subtle fat stranding at the ro ot of the small bowel mesentery, the latter likely related to edema or inflamma tion. 3. Cholelithiasis. 4. Unchanged fat-containing supraumbilical ventral hernias.
[2020-08-19 10:25] LABS: Estimated Glomerular Filt Rate > 60
== END 2020-08-19 09:53 | disposition home or self-care (01) ==
PROVIDERS: PCP Physician Assistant Medical; Visit Provider Internal Medicine Hematology & Oncology
DX: C18.2 Malignant neoplasm of ascending colon (principal); K80.20 Calculus of gallbladder without cholecystitis without obstruction; K43.9 Ventral hernia without obstruction or gangrene
CPT/HCPCS: 74177; Q9967

== ENCOUNTER 2021-04-15 08:41 | Outpatient (CLI) | payer OTHER, SELFPAY ==
--- NOTE | ~2021-04-15 | CT_ITS ---
EXAMINATION: CT abdomen pelvis w con DATE: 04/15/2021 09:27 INDICATION: Malignant neoplasm of ascending colon; restaging TECHNIQUE: Computed tomography (CT) of the abdomen and pelvis was performed with 100 cc Omnipaque 350 intravenous contrast. Automated exposure control and iterative reconstruction technique were employe d. Exam dose: 1487.28 mGy-cm total exam DLP. COMPARISON: 08/19/2020 CT abdomen pelvis FINDINGS: Right lower lobe calcified pulmonary granuloma. No infiltrate or consolidation in the lung bases. Normal heart size. Coronary artery calcification. No pericardial or pleural effusion. Gallstones are noted. No gallbladder wall thickening or pericholecystic fluid or fat stranding. No hepatic, splenic, pancreatic, adrenal or renal space-occupying mass lesion is evident. Normal sple rajni size. There is bilateral renal scarring versus persistent lobation. No urinary tract calculus or hydr oureteronephrosis. Normal caliber of the abdominal aorta. No intraperitoneal or retroperitoneal or pelvic mass lesion or adenopathy or ascites. Status post right colon resection; no bowel obstruction, bowel wall thickening, pneumatosis or intrap eritoneal free air is evident. Proximal minimal sigmoid colon diverticulosis; no evidence of divertic ulitis. The prostate gland and urinary bladder is unremarkable. Small bilateral fat-containing inguinal herni as. Small fat-containing umbilical hernia. There are several supraumbilical midline ventral abdominal wall fat-containing hernias., The largest measuring up to 6.8 cm maximal transverse dimension. Diffuse idiopathic skeletal hyperostosis of the thoracic spine. Bilateral hip osteoarthritic arthritis, more severe on the left. No suspicious osteolytic or osteoblastic lesions are noted. IMPRESSION: Status post right partial colectomy for history of colon malignancy; no recurrence or me tastatic disease is identified Minimal sigmoid diverticulosis Cholelithiasis Supraumbilical ventral midline fat-containing abdominal wall hernias Small fat-containing umbilical hernia Small bilateral fat-containing inguinal hernias Reviewed, dictated and finalized at Location A. Reviewed, dictated and finalized at location B. OR STRUCTURAL ENGINEER IMPRESSION: Status post right partial colectomy for history of colon malignanc y; no recurrence or metastatic disease is identified Minimal sigmoid diverticulosis Cholelithiasis Supraumbilical ventral midline fat-containing abdominal wall hernias Small fat-containing umbilical hernia Small bilateral fat-containing inguinal hernias
[2021-04-15 09:20] LABS: Estimated Glomerular Filt Rate > 60
== END 2021-04-15 08:42 | disposition home or self-care (01) ==
PROVIDERS: PCP Physician Assistant Medical; Visit Provider Internal Medicine Hematology & Oncology
DX: C18.2 Malignant neoplasm of ascending colon (principal); K80.20 Calculus of gallbladder without cholecystitis without obstruction; K57.30 Diverticulosis of large intestine without perforation or abscess without bleeding; K42.9 Umbilical hernia without obstruction or gangrene; K40.90 Unilateral inguinal hernia, without obstruction or gangrene, not specified as recurrent
CPT/HCPCS: 74177; Q9967

== ENCOUNTER 2021-11-19 00:26 | Day surgery (SDC) | payer OTHER, SELFPAY ==
[2021-11-10 14:56] VITALS: BMI 29.9
--- NOTE | 2021-11-10 15:01 | PC.NURSE ---
Report to the Outpatient Waiting Room, entrance under the green pavilion located off [facility], at time 1130 on date 11/19/21_. OR Time: _1330___. - You and your visitor will be asked to self-screen and do not enter if you have any COVID symptoms. - Only one visitor and NO children visitors are allowed at this time. - The patient visitor is requested to leave or wait in car when not with patient due to restrictions. - A mask is required within the hospital. Patients may have clear liquids (water, carbonated beverages, clear teas, apple juice) until 3 hours prior to surgery with a maximum of 20 ounces. - No food from midnight until time of surgery - Infants may have breast milk until 4 hours before surgery, formula 6 hours prior to surgery. - Children will be allowed to drink immediately following surgery. If applicable, please bring a bottle or sippy cup to assist with drinking. Juice, water, soda, and popsicles are readily available. For infants on formula, please bring formula the day of surgery. Pacifiers are allowed. Take the following medications with a SIP of water the morning of surgery: AMLODIPINE , METOPROLOL Medications to discontinue per physician CHECK WITH DR. FALCON OFFICE ABOUT ASPIRIN Date to take last dose Please no make-up, nail divehi, hairspray, perfume, deodorant, or body powder the day of surgery. No jewelry (including any body piercings) or valuables the day of surgery, leave them at home. Please take a shower or bath the night before, or the morning of, surgery with HIBICLENS antibacterial soap. Wear comfortable, loose fitting clothing. Children are encouraged to wear pajamas. - Jewelry must be removed prior to entering the operating room. Rings and piercings that are not removed may be cut off. - The hospital will not accept responsibility for valuables. - Please leave all valuables, including medications, at home the day of surgery. If you are going home after surgery, a licensed newspaper delivery driver must drive you home. - NO public transportation without another adult. - We recommend that an adult stay with you for 24 hours following discharge. - We also recommend that you do not drive, make important decision, drink alcoholic beverages, or take any drugs that were not prescribed by your health care provider for at least 24 hours after your discharge time. For Pediatric surgeries, we recommend two adults accompany the child home (only one inside the building at this time). Follow any additional instructions given to you from your surgeon. If you or anyone in your household have experienced Covid symptoms in the past week, please notify your surgeon or the nurse liaison at the phone number below for possible testing. Telephone instructions given to _PATIENT and asked if any additional questions and then verbalized understanding. Patient advised to call surgeon office or pre surgery nurse liaison [phone] if any additional questions.
[2021-11-19 11:58] VITALS: BP 168/88; PULSE 55; RESP 14; TEMP 36.3; O2SAT 100
[2021-11-19] MEDS: LACTATED RINGERS 1,000 ML 30 ML IV CONT (12:05)
--- NOTE | 2021-11-19 13:04 | WPDANESEPPF ---
Anes - Initial Pre Proc Eval Procedure: Operation Date: 11/19/21 13:30 Proposed Procedures p Removal Lauren Cath - Cb Moreau DO Date/Time: 11/19/21 13:04 Surgeon: Cb Moreau DO Pre Op Diagnosis: hx of malignant neoplasm of ascending colon Patient Data Age: 56 Gender: M Height: 1.92 m Weight: 116.6 kg Last Vital Signs Temp 97.4 F L 11/19/21 11:58 Pulse 55 L 11/19/21 11:58 Resp 14 11/19/21 11:58 BP 168/88 H 11/19/21 11:58 Pulse Ox 100 11/19/21 11:58 O2 Del Method Room Air 11/19/21 11:58 Allergies Allergy/AdvReac Type Severity Reaction Status Date / Time No Known Allergies Allergy Verified 11/10/21 14:51 Home Medications Medication Instructions Recorded Confirmed Type amlodipine 10 mg tablet 10 mg PO DAILY 07/28/19 11/10/21 History ondansetron 4 mg disintegrating 4 mg PO Q6H 08/22/19 07/28/21 History tablet aspirin 81 mg tablet,delayed 81 mg PO DAILY 09/04/19 11/10/21 History release (Aspir-) metoprolol tartrate 25 mg tablet 25 mg PO BID 10/30/19 11/10/21 History lisinopril 2.5 mg tablet 2.5 mg PO DAILY 11/13/19 11/10/21 History Patient hx anesthesia problems: none Family hx anesthesia problems: none Results Review: All pre-operative results and documents have been reviewed as part of the pre-operative evaluation. [facility] Past Medical History Medical History Ascending colon malignant neoplasm Hypertension Surgical History Surgical History H/O hemicolectomy H/O inguinal hernia repair left, in 1975 Family History Family History Sibling Diabetes mellitus Social History Social History Smoking status: Never smoker Alcohol intake: former Substance use: never Substance use type: does not use Living arrangements: alone Gender identity (if verbalized by the patient): Male Spiritual care concerns: No Agree to blood products: Yes Anes - Eval Final PreProcedure Day of Procedure 11/19/21 13:04 Patient weight: obese Heart: regular rate and rhythm Lungs: clear to auscultation Airway: Mallampati scale class II Neurological: alert and oriented Last oral intake: >/= 8 hours ASA classification: III Emergent: no Anesthetic plan: proceed Anesthesia type and monitoring: general GIVS and standard monitoring Results Review: All pre-operative results and documents have been reviewed as part of the pre-operative evaluation. Informed Consent: The patient's anesthetic plan and its attendant risks and benefits were discussed with the patient/family/POA. Questions were solicited and answers provided to the satisfaction of the patient/family/POA.
--- NOTE | 2021-11-19 13:37 | PM.IMHP ---
H&P: HPI History of Present Illness Date/Time: 11/19/21 13:37 Chief Complaint: Colon cancer Narrative: This is a 56-year-old man who presents for Port-A-Cath removal. He has a prior history of colon cancer and underwent right hemicolectomy with postoperative adjuvant chemotherapy. He has now completed chemotherapy and is doing well. His oncologist requested that the Port-A-Cath now be removed. Review of Systems Review of Systems: All systems reviewed & are unremarkable except as noted in HPI and below Constitutional: Constitutional: Denies chills, Denies fever(s), Denies headache(s) and Denies weight loss Eyes: Eyes: Denies change in vision ENT: Denies dizziness, Denies headache(s), Denies neck mass and Denies throat swelling Cardiovascular: Cardiovascular: Denies chest pain, Denies lightheadedness and Denies dyspnea Respiratory: Respiratory: Denies cough, Denies dyspnea and Denies wheezing Gastrointestinal: Gastrointestinal: Denies abdominal pain, Denies change in bowel habits, Denies nausea and Denies vomiting Genitourinary: Genitourinary: Denies hematuria and Denies dysuria Musculoskeletal: Musculoskeletal: Reports as per HPI Integumentary/Breasts: Skin/Breast: Reports as per HPI Neurologic: Denies dizziness and Denies headache(s) Allergic/Immunologic: Allergic/Immunologic: Denies throat swelling and Denies wheezing PMFSH Past Medical History Medical History Ascending colon malignant neoplasm Hypertension Surgical History Surgical History H/O hemicolectomy H/O inguinal hernia repair left, in 1975 Family History Family History Sibling Diabetes mellitus Social History Social History Smoking status: Never smoker Alcohol intake: former Substance use: never Substance use type: does not use Living arrangements: alone Gender identity (if verbalized by the patient): Male Spiritual care concerns: No Agree to blood products: Yes Meds Home Medications and Allergies Home Medications Medication Instructions Recorded Confirmed Type amlodipine 10 mg tablet 10 mg PO DAILY 07/28/19 11/10/21 History ondansetron 4 mg disintegrating 4 mg PO Q6H 08/22/19 07/28/21 History tablet aspirin 81 mg tablet,delayed 81 mg PO DAILY 09/04/19 11/10/21 History release (Aspir-) metoprolol tartrate 25 mg tablet 25 mg PO BID 10/30/19 11/10/21 History lisinopril 2.5 mg tablet 2.5 mg PO DAILY 11/13/19 11/10/21 History Allergies Allergy/AdvReac Type Severity Reaction Status Date / Time No Known Allergies Allergy Verified 11/10/21 14:51 Vital Signs Vital Signs - 24 hr 11/19/21 11:58 Temperature 36.3 C L Pulse Rate 55 L Respiratory Rate 14 Blood Pressure 168/88 H Pulse Oximetry 100 Oxygen Delivery Room Air Exam Const: General: no acute distress and alert Orientation/consciousness: patient oriented x3 HENMT: Head: normocephalic and atraumatic Ears: hearing grossly normal bilaterally General nose exam: Normal nares present Mouth: Yes Normal oral and palatal mucosa present Eyes: Periorbital: periorbital findings normal Sclera: sclerae normal EOM: EOMs intact bilaterally Neck: Neck: normal visual inspection, no lymphadenopathy and trachea midline Chest: Chest palpation & inspection: normal inspection of the chest Resp: Effort & Inspection: normal respiratory effort Auscultation: clear to auscultation bilaterally Cardio: Jugular venous distension: no JVD Rate: regular rate Rhythm: regular rhythm Heart sounds: S1 normal heart sound present and S2 normal heart sound present Peripheral pulses: Peripheral pulses 2+ throughout GI: Inspection: normal to inspection GI Palp: Yes Soft to palpation, No Tenderness to palpation present (GI), No Guarding
--- NOTE | 2021-11-19 13:39 | WPDHPUPDATE1 ---
History and Physical Update Update Date/Time: 11/19/21 13:39 History and Physical has been reviewed, including an updated exam of the patient. There are NO changes in the patient's condition. Risks, benefits, and alternatives have been discussed and questions answered. Patient agrees to proceed with procedure.
[2021-11-19] MEDS: ceFAZolin 2 GM/D5W 50 ML 2 GM/50 ML BAG IVPB (14:03)
[2021-11-19] MEDS: LIDO 1%/EPINEPHRINE 1:100,000 50 ML VIAL 10 ML INFILTRATE (14:22)
[2021-11-19 14:32] VITALS: BP 120/78; PULSE 57; RESP 16; O2SAT 96
--- NOTE | 2021-11-19 14:32 | P.OP_ITS ---
Procedure Note - Detailed Date of Procedure 11/19/21 Pre-op Diagnosis hx of malignant neoplasm of ascending colon Post-op Diagnosis Same Procedure Performed Removal of Port-A-Cath Surgeon Cb Moreau, DO Anesthesia MAC and Local (1% lidocaine epinephrine) Indications This is a 56-year-old man who presents for removal of Port-A-Cath. He had a prior history of ascending colon cancer and underwent surgical resection followed by adjuvant chemotherapy. Findings Port-A-Cath with tip intact. Description of Procedure Procedure as well as risks, benefits, and alternatives were discussed with the patient. Written consent was obtained and placed in chart prior to procedure. Patient was to surgical suite. He was placed supine on operating table. Time- out was done to confirm patient and procedure. IV sedation was then administered by the anesthesia department. His right chest and neck area was prepped and draped in sterile fashion using chlorhexidine prep. 1% lidocaine with epinephrine was infiltrated locally over the port. A 3 cm transverse incision was then made directly over the port using a 15 blade scalpel. Electrocautery was used for hemostasis and for dissection through the subcutaneous tissue. The capsule around the port was incised with electrocautery. The 2 sutures that were securing the port to the fascia were also removed with scissors. This freed up the port completely. A 3-0 Vicryl [id number] suture was then placed around the tubing tract and the tubing was gently withdrawn. Pressure was applied at the base of the neck as the tubing was completely removed. Pressure was held at the neck for several minutes to prevent any back bleeding. Cornelia's fascia and the deep dermis were reapproximated using 3-0 Vicryl simple interrupted sutures. The skin was approximated using 4-0 Monocryl running subcuticular suture. Exofin glue was then applied on top. The patient was then awakened from anesthesia and transferred to recovery. Estimated Blood Loss 5 Complications No immediate complications Condition Stable Disposition Same day [facility] Billing Surgery - Charge Forward: Surgery Billing
[2021-11-19 15:00] VITALS: BP 150/72; PULSE 50; RESP 20
== END 2021-11-19 15:07 | disposition home or self-care (01) ==
PROVIDERS: PCP Physician Assistant Medical; Visit Provider Surgery
PROC: (CPT 36589; principal; 2021-11-19 13:30)
DX: Z45.2 Encounter for adjustment and management of vascular access device (principal); Z85.038 Personal history of other malignant neoplasm of large intestine; Z90.49 Acquired absence of other specified parts of digestive tract; I10 Essential (primary) hypertension; Z79.82 Long term (current) use of aspirin; E66.9 Obesity, unspecified; Z68.31 Body mass index [BMI] 31.0-31.9, adult
CPT/HCPCS: 36590; J0690; J2250; J2704; J3010; J7120

== ENCOUNTER 2022-04-15 08:54 | Outpatient (CLI) | payer OTHER, SELFPAY ==
--- NOTE | ~2022-04-15 | CT_ITS ---
EXAMINATION: CT abdomen pelvis w con DATE: 04/15/2022 11:13 INDICATION: Malignant neoplasm of colon. TECHNIQUE: Computed tomography (CT) of the abdomen and pelvis was performed with 100 mL Omnipaque 350 intravenous contrast. Automated exposure control and iterative reconstruction technique were employe d. The dose-length product was 1279.78 mGy-cm. COMPARISON: CT abdomen and pelvis 04/15/2021 FINDINGS: The visualized portions of the lung bases demonstrate mild dependent atelectasis. A calcifi ed right lung nodule is consistent with old granulomatous disease. No pleural effusion. The heart siz e is normal. No pericardial effusion. The liver, gallbladder, spleen, pancreas, and adrenal glands ar e normal. There is cortical thinning of the kidneys. There is a 5 mm cyst in right kidney. There is a supraumbilical ventral hernia containing fat. The prostate is mildly enlarged. There are changes of right hemicolectomy. There are no pathologically enlarged lymph nodes. There is no free intraperitone al fluid. There is a right inguinal hernia containing fat. There is mild chronic anterior wedging of multiple thoracic vertebral bodies. There is moderate lumbar spondylosis. There is a hemangioma in L3 vertebral body. IMPRESSION: 1. No evidence of metastatic disease. Reviewed, dictated and finalized at location A. [employer]
[2022-04-15 10:29] LABS: Estimated Glomerular Filt Rate 53
== END 2022-04-15 08:55 | disposition home or self-care (01) ==
PROVIDERS: PCP Physician Assistant Medical; Visit Provider Internal Medicine Hematology & Oncology
DX: C18.2 Malignant neoplasm of ascending colon (principal)
CPT/HCPCS: 74177; Q9967

== ENCOUNTER 2023-04-12 07:27 | Outpatient (CLI) | payer OTHER, SELFPAY ==
--- NOTE | ~2023-04-12 | CT_ITS ---
CT of the Abdomen and Pelvis: Indication: Colon cancer Technique: 2.5 mm axial scans were obtained through the abdomen and pelvis following intravenous adm inistration of 100 cc of Omnipaque 350. Dose reduction technique was used on this scan by utilizing a utomated exposure control and iterative reconstruction technique. The dose-length product (DLP) was 9 90.48 mGy-cm. COMPARISON: 04/15/2022 Findings: Scans through the lung bases are unremarkable. The liver, spleen, pancreas, adrenals and kidneys are within normal limits. Small gallstones are prob ably present. No evidence of aortic aneurysm. No lymphadenopathy. No bowel obstruction or bowel wall thickening. There is a wide necked, ventral, fat-containing hernia . There is evidence of prior partial right colectomy. Images through the pelvis were performed. Urinary bladder unremarkable. No pelvic mass seen. No ascit es. Impression: No evidence for active malignancy or metastatic disease. Postoperative change, as above. Wide necked ventral fat-containing hernia. Probable cholelithiasis. Reviewed, dictated and finalized at location . R PASSENGER CAR Impression: No evidence for active malignancy or metastatic disease. Postoperative change, as above. Wide necked ventral fat-containing hernia. Probable cholelithiasis.
[2023-04-12 07:51] LABS: Estimated Glomerular Filt Rate > 60
== END 2023-04-12 07:28 | disposition home or self-care (01) ==
LOC: ANHIMG 07:30
PROVIDERS: PCP Physician Assistant Medical; Visit Provider Internal Medicine Hematology & Oncology
DX: C18.2 Malignant neoplasm of ascending colon (principal); K43.9 Ventral hernia without obstruction or gangrene
CPT/HCPCS: 74177; Q9967

== ENCOUNTER 2023-06-02 03:14 | Day surgery (SDC) | payer OTHER, SELFPAY ==
[2023-05-24 16:02] VITALS: BMI 31.2
--- NOTE | 2023-05-31 10:06 | SUR.PREOP ---
Patient called regarding upcoming procedure. Voicemail left regarding appointment times.
[2023-06-02 07:53] VITALS: BP 184/99; PULSE 91; RESP 18; TEMP 36.1; O2SAT 99
[2023-06-02] MEDS: LACTATED RINGERS 1,000 ML 150 ML IV CONT (08:02)
--- NOTE | 2023-06-02 09:05 | P.PNAN_ITS ---
Anes - Initial Pre Proc Eval Procedure: Operation Date: 06/02/23 09:00 Proposed Procedures p Colonoscopy - David Mcnamara MD Date/Time: 06/02/23 09:05 Surgeon: David Mcnamara MD Pre Op Diagnosis: Personal history of colon cancer Patient Data Age: 58 Gender: M Height: 1.92 m Weight: 117.7 kg Last Vital Signs Temp 97 F L 06/02/23 07:53 Pulse 91 06/02/23 07:53 Resp 18 06/02/23 07:53 BP 184/99 H 06/02/23 07:53 Pulse Ox 99 06/02/23 07:53 O2 Del Method Room Air 06/02/23 07:53 Allergies Allergy/AdvReac Type Severity Reaction Status Date / Time No Known Allergies Allergy Verified 06/02/23 07:52 Home Medications Medication Instructions Recorded Confirmed Type amlodipine 10 mg tablet 10 mg PO DAILY #90 tabs 07/29/22 05/24/23 Rx lisinopril 2.5 mg tablet 2.5 mg PO DAILY #90 tabs 07/29/22 05/24/23 Rx metoprolol succinate 25 mg 25 mg PO DAILY #90 tabs 07/29/22 05/24/23 Rx tablet,extended release 24 hr Patient hx anesthesia problems: none Family hx anesthesia problems: none Results Review: All pre-operative results and documents have been reviewed as part of the pre-op erative evaluation. [facility] Past Medical History Medical History (Updated 07/29/22 @ 15:43 by Bessy Fournier PA-C) Ascending colon malignant neoplasm Hypertension Surgical History Surgical History (Updated 07/29/22 @ 15:27 by Bessy Fournier PA-C) H/O hemicolectomy 06/2019 H/O inguinal hernia repair left, in 1975 Family History Family History Sibling Diabetes mellitus Social History Social History Smoking status: Never smoker Second hand tobacco smoke exposure: No Alcohol intake: current Alcohol use details: rare Substance use: never Substance use type: does not use Living arrangements: with family Occupation/Education: occupation Gender identity (if verbalized by the patient): Male Sexual Orientation (if Verbalized by the Patient): Straight or Heterosexual Spiritual care concerns: No Agree to blood products: Yes Anes - Eval Final PreProcedure Day of Procedure 06/02/23 09:05 Patient weight: obese Heart: regular rate and rhythm Lungs: clear to auscultation Airway: Mallampati scale class II Neurological: alert and oriented Last oral intake: >/= 8 hours ASA classification: III Emergent: no Anesthetic plan: proceed Anesthesia type and monitoring: general GIVS and standard monitoring Results Review: All pre-operative results and documents have been reviewed as part of the pre- operative evaluation. Informed Consent: The patient's anesthetic plan and its attendant risks and benefits were discussed with the patient/family/POA. Questions were solicited and answers provided to the satisfaction of the patient/family/POA.
--- NOTE | 2023-06-02 09:07 | PM.HPGS ---
History of Present Illness History of Present Illness Consent: Risks, benefits, and alternatives have been discussed and questions answered. Patient agrees to proceed with procedure. Chief complaint: Personal history of colon cancer Narrative: Dajuan Manzo is a 58 year old male here for colonoscopy, had ascending colon cancer s/p CHIO right hemicolectomy with ileocolic anastomosis performed on 07/05/19 and chemotherapy, last colonoscopy 2020 with polyps Review of Systems Review of Systems: All systems reviewed & are unremarkable except as noted in HPI and below PMFSH Past Medical History Medical History (Updated 06/02/23 @ 09:11 by David Mcnamara MD) Ascending colon malignant neoplasm History of colon cancer Hypertension Surgical History Surgical History (Updated 07/29/22 @ 15:27 by Bessy Fournier PA-C) H/O hemicolectomy 06/2019 H/O inguinal hernia repair left, in 1975 Family History Family History Sibling Diabetes mellitus Social History Social History Smoking status: Never smoker Second hand tobacco smoke exposure: No Alcohol intake: current Alcohol use details: rare Substance use: never Substance use type: does not use Living arrangements: with family Occupation/Education: occupation Gender identity (if verbalized by the patient): Male Sexual Orientation (if Verbalized by the Patient): Straight or Heterosexual Spiritual care concerns: No Agree to blood products: Yes Meds Home Medications and Allergies Home Medications Medication Instructions Recorded Confirmed Type amlodipine 10 mg tablet 10 mg PO DAILY #90 tabs 07/29/22 05/24/23 Rx lisinopril 2.5 mg tablet 2.5 mg PO DAILY #90 tabs 07/29/22 05/24/23 Rx metoprolol succinate 25 mg 25 mg PO DAILY #90 tabs 07/29/22 05/24/23 Rx tablet,extended release 24 hr Allergies Allergy/AdvReac Type Severity Reaction Status Date / Time No Known Allergies Allergy Verified 06/02/23 07:52 Vital Signs Vital Signs - 24 hr 06/02/23 07:53 Temperature 97 F L Pulse Rate 91 Respiratory Rate 18 Blood Pressure 184/99 H Pulse Oximetry 99 Oxygen Delivery Room Air Exam Const: General: comfortable and no acute distress HENMT: Face/Nose/Sinus: Normal nares present Eyes: General: appearance normal, both eyes and all related structures Neck: Neck: no JVD Resp: Auscultation: clear to auscultation bilaterally Cardio: Rate: regular rate Rhythm: regular rhythm GI: Inspection: non-distended GI Palp: Yes Soft to palpation Skin: General skin exam: normal color Neuro: General: gait normal Speech: normal speech Extrem: General: normal to inspection Psych: Mental Status: mental status grossly normal Assessment and Plan Assessment and plan (1) History of colon cancer: Code(s): Z85.038 - Personal history of other malignant neoplasm of large intestine Status: Acute Assessment and Plan: colonoscopy
[2023-06-02 09:33] VITALS: BP 142/94; PULSE 73; RESP 17; O2SAT 99
[2023-06-02 09:43] VITALS: BP 151/77; PULSE 59; RESP 16; O2SAT 100
[2023-06-02 09:53] VITALS: BP 160/90; PULSE 74; RESP 20; O2SAT 100
== END 2023-06-02 09:55 | disposition home or self-care (01) ==
PROVIDERS: PCP Physician Assistant Medical; Referring Provider Internal Medicine Hematology & Oncology; Visit Provider Internal Medicine Gastroenterology
PROC: 0DJD8ZZ Inspection of Lower Intestinal Tract, Via Natural or Artificial Opening Endoscopic (ICD-10-PCS; CPT 45378; principal; 2023-06-02 09:00)
DX: Z08 Encounter for follow-up examination after completed treatment for malignant neoplasm (principal); K63.5 Polyp of colon; Z98.0 Intestinal bypass and anastomosis status; Z85.038 Personal history of other malignant neoplasm of large intestine; Z90.49 Acquired absence of other specified parts of digestive tract; I10 Essential (primary) hypertension
CPT/HCPCS: 45385; 88305; J2704; J7120

== ENCOUNTER 2023-10-15 10:33 | Outpatient (CLI) | payer OTHER, SELFPAY ==
[2023-10-15 10:51] LABS: Basophils Absolute Auto 0.1 K/mm3 (0.0-0.1); Basophils Percent Auto 0.9 % (0.2-1.2); Eosinophils Absolute Auto 0.3 K/mm3 (0-0.3); Eosinophils Percent Auto 3.5 % (0-4.4); Hematocrit 45.5 % (42.0-52.0); Hemoglobin 15.7 g/dL (14.0-18.0); Immature Granulocyte Absolute 0.05 K/mm3 (0.00-0.031); Immature Granulocyte Percent A 0.5 % (0-0.5); Lymphocytes Absolute Auto 2.44 K/mm3 (0.9-3.2); Lymphocytes Percent Auto 26.2 % (18.3-44.2); Mean Corpuscular HGB Conc 34.5 g/dl (32-36); Mean Corpuscular Hemoglobin 28.8 pg (26-34); Mean Corpuscular Volume 83.5 fl (80-100); Mean Platelet Volume 9.6 fl (7.4-10.4); Monocytes Percent Auto 10.2 % (2.6-8.5); Neutrophils Absolute Auto 5.5 K/mm3 (1.3-6.7); Neutrophils Percent Auto 58.7 % (45.5-73.1); Platelet Count Result 234 k/mm3 (150-375); Red Blood Count 5.45 M/mm3 (4.6-6.20); Red Cell Distribution Width 12.5 % (11.5-14.5); White Blood Count 9.3 K/mm3 (4.5-10.0)
[2023-10-15 11:09] LABS: Alanine Aminotransferase 25 U/L (6-50); Albumin Level 4.3 g/dL (3.5-5.1); Alkaline Phosphatase 121 U/L (38-126); Anion Gap 8 mmol/L (4-12); Aspartate Amino Transferase 39 U/L (17-59); Bilirubin,Total 0.6 mg/dL (0.2-1.3); Blood Urea Nitrogen 27 mg/dL (9-20); Carbon Dioxide 21 mmol/L (22-30); Chloride 107 mmol/L (98-107); Estimated Glomerular Filt Rate > 60; Glucose 122 mg/dL (65-110); Potassium 4.5 mmol/L (3.4-5.0); Sodium 136 mmol/L (137-145)
[2023-10-15 11:38] LABS: Carcinoembryonic Antigen 2.3 ng/mL (0.0-3.0)
== END 2023-10-15 10:34 | disposition home or self-care (01) ==
LOC: ANHLAB 10:35
PROVIDERS: PCP Physician Assistant Medical; Visit Provider Internal Medicine Hematology & Oncology
DX: C18.2 Malignant neoplasm of ascending colon (principal)
CPT/HCPCS: 36415; 80053; 82378; 85025

== ENCOUNTER 2024-04-20 11:00 | Outpatient (CLI) | payer OTHER, SELFPAY ==
[2024-04-20 11:16] LABS: Basophils Absolute Auto 0.1 K/mm3 (0.0-0.1); Basophils Percent Auto 0.8 % (0.2-1.2); Eosinophils Absolute Auto 0.3 K/mm3 (0-0.3); Eosinophils Percent Auto 2.2 % (0-4.4); Hematocrit 47.3 % (42.0-52.0); Hemoglobin 16.2 g/dL (14.0-18.0); Immature Granulocyte Absolute 0.08 K/mm3 (0.00-0.031); Immature Granulocyte Percent A 0.5 % (0-0.5); Lymphocytes Absolute Auto 3.22 K/mm3 (0.9-3.2); Lymphocytes Percent Auto 21.8 % (18.3-44.2); Mean Corpuscular HGB Conc 34.2 g/dl (32-36); Mean Corpuscular Hemoglobin 28.8 pg (26-34); Mean Corpuscular Volume 84.2 fl (80-100); Mean Platelet Volume 9.4 fl (7.4-10.4); Monocytes Absolute Auto 1.2 K/mm3 (0.1-0.6); Monocytes Percent Auto 8.1 % (2.6-8.5); Neutrophils Absolute Auto 9.8 K/mm3 (1.3-6.7); Neutrophils Percent Auto 66.6 % (45.5-73.1); Platelet Count Result 305 k/mm3 (150-375); Red Blood Count 5.62 M/mm3 (4.6-6.20); Red Cell Distribution Width 12.5 % (11.5-14.5); White Blood Count 14.8 K/mm3 (4.5-10.0)
[2024-04-20 11:19] LABS: Blood Urea Nitrogen 24 mg/dL (8-26); Carbon Dioxide 23 mmol/L (22-30); Chloride 104 mmol/L (98-109); Estimated Glomerular Filt Rate 42; Glucose 105 mg/dL (70-105); Ionized Calcium (POC) 1.07 mmol/L (1.11-1.31); Potassium 3.8 mmol/L (3.5-4.9); Sodium 138 mmol/L (138-146)
--- OUTSIDE RECORDS SUMMARY | 2024-04-20 11:28 | XMS_ITS | Continuity of Care Document ---
Author Organization [employer] [facility] Address [address] [place] [address] Phone Care Team Providers Care Teletype Mechanic Name Role Phone Carito Austin LOCKE Unavailable Unavailable Allergies, Adverse Reactions, Alerts Substance Reaction Status Criticality No Known allergies Procedures Procedure Date Office/outpatient Visit, Est Corneal Topography Contact Lens Assessment Refraction Contact Lens Hydrophilic, Spherical Cntct Lens Hydrophilic Toric Or Prism Ba llast Frames Lens Package Polycarb Lens Per Lens Anti-reflective Coating Contact Lens Check Contact Lens Hydrophilic, Spherical Cntct Lens Hydrophilic Toric Or Prism Ba llast No Charge Refractive Evaluation 013 Contact Lens Assessment Advance Directives Directive Yes / No Effective Date File Name Resuscitation Not Answered N/A N/A Life Support Not Answered N/A N/A Intubation Not Answered N/A N/A Antibiotics Not Answered N/A N/A IV Fluid Support Not Answered N/A N/A Tube Feed Not Answered N/A N/A Other Directive N/A N/A WARNING:The information contained in this section is historical and is provided for information only and does not constitute a legal document or any assurance that the information is still accurate. Please verify the information with the garcia of the legal document before using it for clinical purposes. Encounters Encounter Description Practice Location Reason(s) For Visit Diagnoses Date Provider Providers Copied on Encounter Office/outpat ient Visit, Est [facility], [address], [place], [place], [id number], [place] tel:[phone] [facility] blurry vision (chief complaint) KERATOCONUS, STABLECUPPING OF OPTIC DISC 4 Carito OD Austin. [address], [place], [address], [place]. tel:[phone] Referring Provider: Austin Pedro, [address], [place], [address]. tel:[phone] [facility], [id number] [place] [address] [address], [place], [place], [id number], [place] tel:[phone] [facility] No Information 4 [facility]. [address] [facility], [facility] [address], [place], [id number] , [place]. tel:[phone] Referring Provider: Austin Pedro, [address], [place], [address]. tel:[phone] ing Provider: Remberto Vargas, [address] [facility], [place], [address]. [facility], [address], [place], [place], [id number], [place] tel:[phone] [facility] [place] No Information 3 Carito OD Austin. [address], [address], [place], [address], [place]. tel:[phone] Referring Provider: Austin Pedro, [address], [place], [address]. tel:[phone] [facility], [address], [place], [place], [id number], [place] tel:[phone] [facility] [place] No Information 3 Carito OD Austin. [address], [address] [place] [address], [place], [place]. tel: [phone] Referring Provider: Austin Ramirezndo CHUCKY Pedro, [address] [facility], [place], [place], [place]. tel:[phone] Family History Family Member Type Diagnosis Age At Onset No Information Payers Payer name Insurance type Covered democrat ID Kenna watkins(s) [facility] [id number] Social History Type Description Quantity Date Captured Comments Alcohol Use Details Unknown Caffeine Use Details Unknown Tobacco Use Status No Information Smoking Status Never smoker Non-Smoking Tobacco Use Details : No Details Available : No Details Available Sex Male Chief Complaint And Reason For Visit From encounter dated '03/31/2013 10:00'. blurry vision (chief complaint) Reason For Referral Reason For Referral No Information History Of Present Illness Encounter Date Complaint History Of Prese nt Illness No Information Functional Status Date Functional Assessmen t No Information Instructions Date Instruction Additional Infor uziel - Return in 1 year w bandar Arzate O.D. for Complete Exam / Contacts, Visual Field (24-2), Topography and Disc Photos. Related to CUPPING OF OPTIC DISC KERATOCONUS, STABLE CUPPING OF OPTIC DISC - stable topomild adjustment to CL's (mail year supply OU DAC+ and DAC+ TC with OS for near)call with any changes in VAHVF and ONH photos next year Educational materials provided:about today's exam. Related to CUPPING OF OPTIC DISC Assessments Type Assessment Date No Information Patient Care Teams Name Effective Dates (start - stop) Status Members No Information
--- OUTSIDE RECORDS SUMMARY | 2024-04-20 11:28 | XMS_ITS | Referral Summary ---
Author Organization [facility] [address] Address [address] [place] [address] Care Team Providers Care Metal Tank Builder Name Role Phone Bessy Fournier Primary Care Provider [phone] Lázaro Lamas MD Unavailable [phone] Allergies No known active allergies Medications lidocaine-pril ocaine cream APPLY CREAM TOPICALLY TO AFFECTED AREA. SEE ADMINISTRATION INSTRUCTIONS. APPLY TO PORT SITE 30 MINUTES PRIOR TO ACCESS. 0 Active amLODIPine (NORVASC) 10 mg tablet Take 1 tablet (10 mg total) by mouth daily 90 tablet 3 1 Active aspirin 81 mg enteric coated tablet Take 81 mg by mouth daily Active potassium 99 mg tablet Take 99 mg by mouth daily Active lisinopriL (PRINIVIL,ZEST RIL) 2.5 mg tablet Take 1 tablet (2.5 mg total) by mouth daily 90 tablet 3 1 Active metoprolol tartrate (LOPRESSOR) 25 mg immediate release tablet Take 1 tablet (25 mg total) by mouth 2 (two) times a day 180 tablet 3 1 Active Active Problems Problem Noted Date Diagnosed Date Essential hypertension 10/19/2019 Pre-syncope 10/19/2019 Sinus tachycardia 10/19/2019 Malignant neoplasm of colon 10/19/2019 Anemia 10/19/2019 Social History Tobacco Use Types Packs/Day Years Used Date Smoking Tobacco: Never Smokeless Tobacco: Former Alcohol Use Standard Drinks/Week Comments Not Currently 0 (1 standard drink = 0.6 oz pur e alcohol) Personal Safety Answer Date Recorded Getting School Help Needed Not on file 05/29 Sex and Gender Information Value Date Recorded Sex Assigned at Not on file Legal Sex Male 8:33 AM CDT Gender Identity Not on file Sexual Orientation Not on file Last Filed Vital Signs Vital Sign Reading Time Taken Comments Blood Pressure 124/84 02/11/2021 1:05 PM TAR BOILER Pulse 82 02/11/2021 1:05 PM TAR BOILER Temperature 36.6 C (97.8 F) 10/20/2019 11:38 AM CDT Respiratory Rate - - Oxygen Saturation 98% 02/11/2021 1:05 PM TAR BOILER Inhaled Oxygen Concentration - - Weight 117.5 kg (259 lb) 02/11/2021 1:05 PM TAR BOILER Height 191.8 cm (6' 3.5 ) 02/11/2021 1:05 PM TAR BOILER Body Mass Index 31.95 02/11/2021 1:05 PM TAR BOILER Plan of Treatment Not on file Insurance [employer] Member Subscriber Plan / Payer (Ef fective 2012-Present) Name:Dajuan Manzo Relation to Subscriber:Self Name:Dajuan Manzo Payer ID:[id number] Group ID:Not on file Type:COMMERCIAL Address: [address] Care Teams Metal Tank Builder Relationship Specialty Start Date End Date Bessy Fournier PA [address] [place] [address] PCP - General Family Practice 10/19/19 Lázaro Lamas MD [address] [address] Referring Physician Hematology 10/19/19
--- OUTSIDE RECORDS SUMMARY | 2024-04-20 11:28 | XMS_ITS | Encounter Summary ---
Author Organization [facility] Address [address] [place] [address] Care Team Providers Care Cigar Head Pegger Name Role Phone Bessy Fournier PA-C Primary Care Provider [phone] Encounter Details Date Type Department Care Team (Late Contact Info) Description 04/18/2024 External Device Data STL ABSTRACTION Provider, Abstract NO ADDRESS ON FILE Social History Tobacco Use Types Packs/Day Years Used Date Smoking Tobacco: Never Smokeless Tobacco: Never Alcohol Use Standard Drinks/Week Comments Not Currently 0 (1 standard drink = 0.6 oz pur e alcohol) Sex and Gender Information Value Date Recorded Sex Assigned at Not on file Legal Sex Male 8:11 AM CDT Gender Identity Not on file Sexual Orientation Not on file documented as of this encounter Plan of Treatment Upcoming Encounters Date Type Department Care Team (Late Contact Info) Description 04/20/2024 11:30 AM BOAT DIESEL MOTOR MECHANIC Office Visit [facility] Oncology and Hematology - [place] [address] [place] [address] [facility] [address] [place] [address] Lázaro Lamas MD [address] [place] [address] Arrived documented as of this encounter Visit Diagnoses Not on filedocumented in this encounter Care Teams Cigar Head Pegger Relationship Specialty Start Date End Date Bessy Fournier PA-C [address] [place] [phone] PCP - General Physician Silver Lap Machine Tender 07/17/19 documented as of this encounter
--- OUTSIDE RECORDS SUMMARY | 2024-04-20 11:28 | XMS_ITS | Clinical Summary ---
Author Organization [facility] [address] Address [address] [place] [address] Care Team Providers Care Pasteurizing Supervisor Name Role Phone Bessy Fournier Primary Care Provider [phone] Lázaro Lamas MD Unavailable [phone] Allergies No known active allergies Medications [...] Malignant neoplasm of colon 10/19/2019 Anemia 10/19/2019 Surgical History Surgery Date Site/Laterality Comments HERNIA REPAIR Medical History Medical History Date Comments Hypertension Anemia Colon cancer (CMS/HCC) (HCC) H/O hernia repair Family History Medical History Relation Name Comments Heart disease Brother GI bleed? Father Heart attack Mother Relation Name Status Comments Brother Alive Father (Age 83) Mother (Age 79) Social History Tobacco Use Types Packs/Day Years [...] on file Sexual Orientation Not on file Obstetrics History Last Filed Vital Signs Vital Sign Reading Time Taken Comments Blood Pressure 124/84 02/11/2021 1:[address] LIAISON Pulse 82 02/11/2021 1:[address] LIAISON Temperature 36.6 C (97.8 F) 10/20/2019 11:38 AM CDT Respiratory Rate - - Oxygen Saturation 98% 02/11/2021 1:[address] LIAISON Inhaled Oxygen Concentration - - Weight 117.5 kg (259 lb) 02/11/2021 1:[address] LIAISON Height 191.8 cm (6' 3.5 ) 02/11/2021 1:[address] LIAISON Body Mass Index 31.95 02/11/2021 1:[address] LIAISON Plan of Treatment Not on file Insurance [employer] Member Subscriber Plan / Payer (Ef fective 2012-Present) Name:Dajuan Manzo Relation to Subscriber:Self Name:Dajuan Manzo Payer ID:[id number] Group ID:Not on file Type:COMMERCIAL Address: [address] Care Teams Pasteurizing Supervisor Relationship Specialty Start Date End Date Bessy Fournier PA [facility] [place] [address] PCP - General Family Practice 10/19/19 Lázaro Lamas MD [address] [address] Referring Physician Hematology 10/19/19
--- OUTSIDE RECORDS SUMMARY | 2024-04-20 11:28 | XMS_ITS | Clinical Summary ---
Author Organization [facility] Debora usha Lamas Address [address] [place] [address] Care Team Providers Care Network Support Specialist Name Role Phone Bessy Fournier PA-C Primary Care Provider [phone] Allergies No known active allergies Medications lisinopriL (PRINIVIL) 2.5 mg tablet TAKE 1 TABLET BY MOUTH ONCE DAILY 11/10/2019 Active Potassium 99 mg Tablet Take 99 mg by mouth daily. Active amLODIPine (NORVASC) 10 mg tablet Take 10 mg by mouth daily. 02/12/2021 Active Active Problems Problem Noted Date Diagnosed Date Malignant neoplasm of ascending colon 10/02/2019 Encounters Date Type Department Care Team Description 04/20/2024 11:30 AM WATERWORKS SUPERVISOR Office Visit [facility] Oncology and Hematology - [place] [address] [address] Lázaro Lamas MD Arrived 04/18/2024 External Device Data STL ABSTRACTION Provider, Abstract 04/12/2024 External Device Data STL ABSTRACTION Provider, Abstract 04/06/2024 External Device Data STL ABSTRACTION Provider, Abstract 02/15/2024 External Device Data STL ABSTRACTION Provider, Abstract from Last 3 Months Family History Medical History Relation Name Comments Diabetes Brother 1 Cancer Mother Diabetes Mother Relation Name Status Comments Brother 1 Alive Brother 2 Alive Brother 3 Alive Father Mother Sister 1 Alive Sister 2 Alive Sister 3 Alive Social History Tobacco Use Types Packs/Day Years Used Date Smoking Tobacco: Never Smokeless Tobacco: Never Tobacco Cessation:Counseling Given: Not Answered Alcohol Use Standard Drinks/Week Comments Not Currently 0 (1 standard drink = 0.6 oz pur e alcohol) Sex and Gender Information Value Date Recorded Sex Assigned at Not on file Legal Sex Male 8:11 AM CDT Gender Identity Not on file Sexual Orientation Not on file Last Filed Vital Signs Vital Sign Reading Time Taken Comments Blood Pressure 164/98 04/20/2024 11:22 AM WATERWORKS SUPERVISOR Pulse 95 04/20/2024 11:18 AM WATERWORKS SUPERVISOR Temperature 36.7 C (98 F) 04/20/2024 11:18 AM WATERWORKS SUPERVISOR Respiratory Rate 16 04/20/2024 11:1 8 AM WATERWORKS SUPERVISOR Oxygen Saturation 96% 04/20/2024 11: 18 AM WATERWORKS SUPERVISOR Inhaled Oxygen Concentration - - Weight 112.2 kg (247 lb 6.4 oz) 025 11:18 AM WATERWORKS SUPERVISOR Height 190.5 cm (6' 3 ) 10/20/2021 10:2 9 AM CDT Body Mass Index 30.92 10/20/2021 10:29 AM CDT Plan of Treatment Upcoming Encounters Date Type Department Care Team (Late st Contact Info) Description 04/20/2024 11:30 AM WATERWORKS SUPERVISOR Office Visit [facility] Oncology and Hematology - [place] [address] [facility] [address] [place] [address] Lázaro Lamsa MD [address] [facility] [address] [place] [address] Arrived Health Maintenance Due Date Last Done Comments Pre-Diabetes and Diabetes Screening 1967 DTAP/TDAP/TD VACCINES (1 - Tdap) 1986 HEPATITIS B VACCINES (1 of 3 - 19+ 3-dose series) 01/13 ZOSTER VACCINE (1 of 2) 2017 INFLUENZA VACCINE (#1) 2023 Preventative Visit- Commercial 03/15/2024 Procedures Procedure Name Priority Date/Time Associated Diagnosis Comments CEA Routine 04/19/2024 8:16 AM WATERWORKS SUPERVISOR Malignant neoplasm of ascending colon (CMS/HCC) from Last 3 Months Results * CEA (04/19/2024 8:16 AM WATERWORKS SUPERVISOR) CEA <2.0 See Note: ng/mL [facility] Comment: Reference Range: Non-Smoker: <2.5 Smoker: <5.0 This test was performed using the Siemens chemiluminescent method. Values obtained from different assay methods cannot be used interchangeably. CEA levels, regardless of value, should not be interpreted as absolute evidence of the presence or absence of disease. FASTING:YES FASTING: YES Test Performed at: [facility] [address] [place] [address] Harsha Cuenca MD Blood 04/19/2024 8:1 6 AM WATERWORKS SUPERVISOR 04/19/2024 8:21 AM WATERWORKS SUPERVISOR Lázaro Lamas MD CHEMISTRY ORDERABLES Final Resu lt [facility] [phone] [facility] [address] [facility] [address] from Last 3 Months Insurance [employer] [address] Care Teams Network Support Specialist Relationship Specialty Start Date End Date Bessy Fournier PA-C [address] [place] [phone] PCP - General Physician Strategic Consultant 07/17/19
[2024-04-20 12:52] LABS: Alanine Aminotransferase 16 U/L (6-50); Albumin Level 4.4 g/dL (3.5-5.1); Alkaline Phosphatase 111 U/L (38-126); Anion Gap 15 mmol/L (4-12); Aspartate Amino Transferase 23 U/L (17-59); Bilirubin,Total 1.1 mg/dL (0.2-1.3); Blood Urea Nitrogen 24 mg/dL (9-20); Calcium 9.4 mg/dL (8.4-10.2); Carbon Dioxide 21 mmol/L (22-30); Chloride 103 mmol/L (98-107); Estimated Glomerular Filt Rate 45; Glucose 105 mg/dL (65-110); Sodium 139 mmol/L (137-145)
== END 2024-04-20 11:01 | disposition home or self-care (01) ==
LOC: ANHLAB 11:01
PROVIDERS: PCP Physician Assistant Medical; Visit Provider Internal Medicine Hematology & Oncology
DX: C18.2 Malignant neoplasm of ascending colon (principal)
CPT/HCPCS: 36415; 80047; 80053; 85025

== ENCOUNTER 2024-04-20 12:19 | Outpatient (CLI) | payer OTHER, SELFPAY ==
--- NOTE | ~2024-04-20 | CT_ITS ---
EXAMINATION: CT chest abdomen pelvis wo con DATE: 04/20/2024 12:41 INDICATION: Malignant neoplasm of ascending colon. TECHNIQUE: Computed tomography (CT) of the chest, abdomen, and pelvis was performed without intraveno us contrast. Automated exposure control and iterative reconstruction technique were employed. The dos e-length product was 1574.62 mGy-cm. COMPARISON: CT abdomen and pelvis 04/12/2023 FINDINGS: CHEST CT: There is a pneumatocele in right upper lobe. There is mild scarring in paraspinal right lower lobe. A calcified right lung nodule and calcified right hilar and mediastinal lymph nodes are consistent wit h old granulomatous disease. There is minimal atelectasis bilaterally. No pleural effusion. The heart size is normal. There are coronary artery calcifications. No pericardial effusion. There is mild margarita ateral gynecomastia. There is mild chronic anterior wedging of multiple vertebral bodies. There is m ild thoracic spondylosis. There is a hemangioma in T6 vertebral body. ABDOMEN/PELVIS CT: There is diffuse hepatic steatosis. There are gallstones in the gallbladder, which is normal in size. The spleen, pancreas, and adrenal glands are normal. There is cortical thinning of the kidneys. Ther e is no urolithiasis. The prostate is mildly enlarged. There are changes of right hemicolectomy. Ther e are no pathologically enlarged lymph nodes. There is no free intraperitoneal fluid. There is chroni c fat stranding at the root of the small bowel mesentery. There are multiple supraumbilical ventral h ernias containing fat. There is moderate lumbar spondylosis. IMPRESSION: 1. No evidence of metastatic disease. 2. Supraumbilical ventral hernias containing fat. Reviewed, dictated and finalized at location A. ROAD CAR REPAIRMAN
--- OUTSIDE RECORDS SUMMARY | 2024-04-20 12:24 | XMS_ITS | Clinical Summary ---
Author Organization [facility] [address] Address [address] [place] [address] Care Team Providers Care Family Coach Name Role Phone Bessy Fournier Primary Care Provider [phone] Lázaro Lamas MD Unavailable [phone] Allergies No known active allergies Medications [...] Comments Blood Pressure 124/84 02/11/2021 1:05 PM GROUND INSTRUCTOR BASIC Pulse 82 02/11/2021 1:05 PM GROUND INSTRUCTOR BASIC Temperature 36.6 C (97.8 F) 10/20/2019 11:38 AM CDT Respiratory Rate - - Oxygen Saturation 98% 02/11/2021 1:05 PM GROUND INSTRUCTOR BASIC Inhaled Oxygen Concentration - - Weight 117.5 kg (259 lb) 02/11/2021 1:05 PM GROUND INSTRUCTOR BASIC Height 191.8 cm (6' 3.5 ) 02/11/2021 1:05 PM GROUND INSTRUCTOR BASIC Body Mass Index 31.95 02/11/2021 1:05 PM GROUND INSTRUCTOR BASIC Plan of Treatment Not on file Insurance COMM[employer] GENERIC Member Subscriber Plan / Payer (Ef fective 2012-Present) Name:Dajuan Manzo Relation to Subscriber:Self Name:Dajuan Manzo Payer ID:[id number] Group ID:Not on file Type:COMMERCIAL Address: [address] Care Teams Family Coach Relationship Specialty Start Date End Date Bessy Fournier PA [facility] [place] [address] PCP - General Family Practice 10/19/19 Lázaro Lamas MD [address] [address] Referring Physician Hematology 10/19/19
--- OUTSIDE RECORDS SUMMARY | 2024-04-20 12:24 | XMS_ITS | Clinical Summary ---
Author Organization [facility] Debora usha Lamas Address [address] [place] [address] Care Team Providers Care Jack Frame Tender Name Role Phone Bessy Fournier PA-C Primary Care Provider [phone] Allergies No known active allergies Medications lisinopriL [...] Department Care Team Description 04/20/2024 11:30 AM PAYING TELLER Office Visit [facility] Oncology and Hematology - [place] [address] [place] [address] Lázaro Lamas MD Malignant neoplasm of ascending colon (CMS/HCC) (Primary Dx) 04/18/2024 External Device Data STL ABSTRACTION Provider, [...] Comments Blood Pressure 164/98 04/20/2024 11:22 AM PAYING TELLER Pulse 95 04/20/2024 11:18 AM PAYING TELLER Temperature 36.7 C (98 F) 04/20/2024 11:18 AM PAYING TELLER Respiratory Rate 16 04/20/2024 11:1 8 AM PAYING TELLER Oxygen Saturation 96% 04/20/2024 11: 18 AM PAYING TELLER Inhaled Oxygen Concentration - - Weight 112.2 kg (247 lb 6.4 oz) 025 11:18 AM PAYING TELLER Height 190.5 cm (6' 3 ) 10/20/2021 10:2 9 AM CDT Body Mass Index 30.92 10/20/2021 10:29 AM CDT Plan of Treatment Upcoming Encounters Date Type Department Care Team (Late st Contact Info) Description 04/27/2024 4:30 PM PAYING TELLER Telephone Check Up [facility] Oncology and Hematology [place] [facility] [address] [place] [address] Lázaro Lamas MD [facility] [employer] [address] [place] [phone] 10/26/2024 11:00 AM CDT Office Visit [facility] Oncology and Hematology [place] [address] [place] [address] Lázaro Lamas MD [facility] [employer] [address] [place] [phone] Health Maintenance Due Date Last Done Comments Pre-Diabetes and Diabetes Screening 1967 DTAP/TDAP/TD VACCINES (1 - Tdap) 1986 HEPATITIS B VACCINES (1 of 3 - 19+ 3-dose series) 01/13 ZOSTER VACCINE (1 of 2) 2017 INFLUENZA VACCINE (#1) 2023 Preventative Visit- Commercial 03/15/2024 Procedures Procedure Name Priority Date/Time Associated Diagnosis Comments CEA Routine 04/19/2024 8:16 AM PAYING TELLER Malignant neoplasm of ascending colon (CMS/HCC) from Last 3 Months Results * CEA (04/19/2024 8:16 AM PAYING TELLER) CEA <2.0 See Note: ng/mL [facility] Comment: Reference Range: Non-Smoker: <2.5 Smoker: <5.0 This test was performed using the Siemens chemiluminescent method. Values obtained from different assay methods cannot be used interchangeably. CEA levels, regardless of value, should not be interpreted as absolute evidence of the presence or absence of disease. FASTING:YES FASTING: YES Test Performed at: [facility] [address] [place] [address] Harsha Cuenca MD Blood 04/19/2024 8:16 AM PAYING TELLER 04/19/2024 8:21 AM PAYING TELLER Lázaro Lamas MD CHEMISTRY ORDERABLES Final Resu lt [facility] [phone] [facility] [address] [address] from Last 3 Months Insurance [employer] [place] Member Subscriber Plan / Payer (Ef fective 2020-Present) Name:Dajuan Manzo Relation to Subscriber:Self Name:Dajuan Manzo Payer ID:[id number] (NAIC) Type:PPO Address: [address] Care Teams Jack Frame Tender Relationship Specialty Start Date End Date Bessy Fournier PA-C [address] [place] [phone] PCP - General Physician Account Manager Forest [employer] 07/17/19
--- OUTSIDE RECORDS SUMMARY | 2024-04-20 12:24 | XMS_ITS | Encounter Summary ---
Author Organization [facility] Address [facility] [address] [place] [address] Care Team Providers Care Repair Cameraman Name Role Phone Bessy Fournier PA-C Primary Care Provider [phone] Reason for Referral * CT Scan (Urgent) - Open Specialty Diagnoses / Procedures Referred By Contac t Referred To Contact Diagnoses Malignant neoplasm of ascending colon (CMS/HCC) Procedures CT CHEST ABDOMEN PELVIS WO CONT Lázaro Lamas MD [address] [place] [address] [place], [place] [address] Phone: tel: fax: [place] [phone] Referral ID Status Reason Start Date Expiration Date V isits Requested Visits Authorized [id number] Open STL CTS 04/20/2024 05/21/2025 1 1 ER MAKER * CT Scan (Routine) - Open Specialty Diagnoses / Procedures Referred By Contac t Referred To Contact Diagnoses Malignant neoplasm of ascending colon (CMS/HCC) Procedures CT ABDOMEN PELVIS W CONTRAST Lázaro Lamas MD [facility] [employer] [address] [place], [place] [address] Phone: tel: fax: [place] [phone] Referral ID Status Reason Start Date Expiration Date V isits Requested Visits Authorized [id number] Open STL CTS 04/20/2024 05/21/2025 1 1 ER MAKER Encounter Details Date Type Department Care Team (Late st Contact Info) Description 04/20/2024 11:30 AM MARKER MAKER Office Visit [facility] Oncology and Hematology [facility] [address] [place] [address] [place]áz[place] [address] [place] [address] [employer] [address] [place] [address] Malignant neoplasm of ascending colon (CMS/HCC) (Primary Dx) Social History Tobacco Use Types Packs/Day Years [...] on file documented as of this encounter Last Filed Vital Signs Vital Sign Reading Time Taken Comments Blood Pressure 164/98 04/20/2024 11:22 AM MARKER MAKER Pulse 95 04/20/2024 11:18 AM MARKER MAKER Temperature 36.7 C (98 F) 04/20/2024 11:18 AM MARKER MAKER Respiratory Rate 16 04/20/2024 11:1 8 AM MARKER MAKER Oxygen Saturation 96% 04/20/2024 11: 18 AM MARKER MAKER Inhaled Oxygen Concentration - - Weight 112.2 kg (247 lb 6.4 oz) 025 11:18 AM MARKER MAKER Height - - Body Mass Index 30.92 10/20/2021 10:29 AM CDT documented in this encounter Plan of Treatment Upcoming Encounters Date Type Department Care Team (Late st Contact Info) Description 04/27/2024 4:30 PM MARKER MAKER Telephone Check Up [facility] Oncology and Hematology [place] [address] [place] [address] Lázaro Lamas MD [address] [facility] [employer] [address] [place] [address] 10/26/2024 11:00 AM CDT Office Visit [facility] Oncology and Hematology [place] [address] [place] [address] [address] [place] [address] Lázaro Lamas MD [address] [facility] [address] [place] [address] Scheduled Orders Name Type Priority Associated Diagnoses Orde r Schedule CBC WITH DIFFERENTIAL Lab Stat Malignant neoplasm of ascending colon (CMS/HCC) Expected: 10/18/2024, Expires: 04/20/2025 CEA Lab Routine Malignant neoplasm of ascending colon (CMS/HCC) Expected: 10/18/2024, Expires: 04/20/2025 COMPREHENSIVE METABOLIC PANEL Lab Stat Malignant neoplasm of ascending colon (CMS/HCC) Expected: 10/18/2024, Expires: 04/20/2025 CT ABDOMEN PELVIS W CONTRAST Imaging Routine Malignant neoplasm of ascending colon (CMS/HCC) Expected: 10/18/2024, Expires: 04/20/2025 CT CHEST ABDOMEN PELVIS WO CONT Imaging Stat Malignant neoplasm of ascending colon (CMS/HCC) Expected: 04/20/2024, Expires: 04/20/2025 documented as of this encounter Visit Diagnoses Diagnosis Malignant neoplasm of ascending colon (CMS/HCC)- Primary Malignant neoplasm of ascending colon documented in this encounter Care Teams Repair Cameraman Relationship Specialty Start Date End Date Bessy Fournier PA-C [facility] [place] [phone] PCP - General Physician Operations Recruiter 07/17/19 documented as of this encounter
--- OUTSIDE RECORDS SUMMARY | 2024-04-20 12:24 | XMS_ITS | Continuity of Care Document ---
Author Organization [facility] Address [address] [place] [address] Phone Care Team Providers Care Terrazzo Roller Name Role Phone Carito Austin LOCKE Unavailable [...] Encounter Office/outpat ient Visit, Est [facility], [address], [place], [place], [id number], [place] tel:[phone] [facility] Ball blurry vision (chief complaint) KERATOCONUS, STABLECUPPING OF OPTIC DISC 4 Carito OD Austin. [address] [facility], [address], [address], [place]. tel:[phone] Referring Provider: Austin Pedro, [address] [facility] [address], [place], [address]. tel:[phone] [facility], [address] [place] [address] [address], [place], [place], [id number], [place] tel:[phone] [facility] [place] No Information 4 Optical [facility]. [address] [facility], [facility] [address], [place], [id number] , [place]. tel:[phone] Referring Provider: Austin Pedro, [address] [facility] [address], [place], [address]. tel:[phone] ing Provider: Remberto Vargas, [address] [facility], [place], [address]. [facility], [address], [place], [place], [id number], [place] tel:[phone] [facility] [place] No Information 3 Carito OD Austin. [address] [facility], [address], [place], [address], [place]. tel:[phone] Referring Provider: Austin Pedro, [address] [facility] [address], [address]. tel:[phone] [facility], [address], [place], [place], [id number], [place] tel:[phone] [facility] [place] No Information 3 Carito OD Austin. [address] [facility], [address] [place] [address], [facility], [place]. tel: [phone] Referring Provider: Austin Ramirezndo CHUCKY Pedro, [address] [facility] Suite [facility], [place], [place], [facility]. tel:[phone] Family History Family Member Type Diagnosis Age At Onset No Information Payers Payer name Insurance type Covered constitution party ID Kenna watkins(s) [facility] [id number] Social History Type Description Quantity Date Captured [...]
--- OUTSIDE RECORDS SUMMARY | 2024-04-20 12:24 | XMS_ITS | Encounter Summary ---
Author Organization [facility] Address [address] [place] [address] Care Team Providers Care Metal Window Screen Assembler Name Role Phone Bessy Fournier PA-C Primary Care Provider [phone] Encounter Details Date Type Department Care Team [...] Department Care Team (Late Contact Info) Description 04/27/2024 4:30 PM AEROPHYSICIST Telephone Check Up [facility] Oncology and Hematology [place] [address] [place] [address] Lázaro Lamas MD [address] [place] [address] 10/26/2024 11:00 AM CDT Office Visit [facility] Oncology and Hematology [place] [address] [place] [phone] Lázaro Lamas MD [address] [place] [address] documented as of this encounter Visit Diagnoses Not on filedocumented in this encounter Care Teams Metal Window Screen Assembler Relationship Specialty Start Date End Date Bessy Fournier PA-C [address] [place] [phone] PCP - General Physician Manager Construction 07/17/19 documented as of this encounter
--- OUTSIDE RECORDS SUMMARY | 2024-04-20 12:24 | XMS_ITS | Referral Summary ---
Author Organization [facility] [address] Address [address] [place] [address] Care Team Providers Care University Relations Director Name Role Phone Bessy Fournier Primary Care Provider [phone] Lázaro Lamas MD Unavailable [phone] Allergies No known active allergies Medications [...] Comments Blood Pressure 124/84 02/11/2021 1:05 PM CORPORATE TRAVEL AGENT Pulse 82 02/11/2021 1:05 PM CORPORATE TRAVEL AGENT Temperature 36.6 C (97.8 F) 10/20/2019 11:38 AM CDT Respiratory Rate - - Oxygen Saturation 98% 02/11/2021 1:05 PM CORPORATE TRAVEL AGENT Inhaled Oxygen Concentration - - Weight 117.5 kg (259 lb) 02/11/2021 1:05 PM CORPORATE TRAVEL AGENT Height 191.8 cm (6' 3.5 ) 02/11/2021 1:05 PM CORPORATE TRAVEL AGENT Body Mass Index 31.95 02/11/2021 1:05 PM CORPORATE TRAVEL AGENT Plan of Treatment Not on file Insurance clickTRUE GENERIC Member Subscriber Plan / Payer (Ef fective 2012-Present) Name:Dajuan Manzo Relation to Subscriber:Self Name:Dajuan Manzo Payer ID:[id number] Group ID:Not on file Type:COMMERCIAL Address: [address] Care Teams University Relations Director Relationship Specialty Start Date End Date Bessy Fournier PA [address] [place] [address] PCP - General Family Practice 10/19/19 Lázaro Lamas MD [address] [address] Referring Physician Hematology 10/19/19
== END 2024-04-20 12:20 | disposition home or self-care (01) ==
PROVIDERS: PCP Physician Assistant Medical; Visit Provider Internal Medicine Hematology & Oncology
DX: C18.2 Malignant neoplasm of ascending colon (principal); K43.9 Ventral hernia without obstruction or gangrene
CPT/HCPCS: 36415; 71250; 74176; 80047; 80053; 85025

== ENCOUNTER 2024-10-25 09:49 | Outpatient (CLI) | payer OTHER, SELFPAY ==
--- OUTSIDE RECORDS SUMMARY | 2024-10-25 09:56 | XMS_ITS | Clinical Summary ---
Author Organization [facility] [address] Address [address] [place] [address] Care Team Providers Care Retread Supervisor Name Role Phone Bessy Fournier Primary Care Provider [phone] Lázaro Lamas MD Unavailable [phone] Allergies No known active allergies Medications [...] History Date Comments Hypertension Anemia Colon cancer (HCC) H/O hernia repair Family History Medical [...] Comments Blood Pressure 124/84 02/11/2021 1:05 PM KIDS CLUB ATTENDANT Pulse 82 02/11/2021 1:05 PM KIDS CLUB ATTENDANT Temperature 36.6 C (97.8 F) 10/20/2019 11:38 AM CDT Respiratory Rate - - Oxygen Saturation 98% 02/11/2021 1:05 PM KIDS CLUB ATTENDANT Inhaled Oxygen Concentration - - Weight 117.5 kg (259 lb) 02/11/2021 1:05 PM KIDS CLUB ATTENDANT Height 191.8 cm (6' 3.5) 02/11/2021 1:05 PM KIDS CLUB ATTENDANT Body Mass Index 31.95 02/11/2021 1:05 PM KIDS CLUB ATTENDANT Plan of Treatment Not on file Insurance [employer] [place] [address] [place] [address] Care Teams Retread Supervisor Relationship Specialty Start Date End Date Bessy Fournier PA [facility] [place] [address] PCP - General Family Practice 10/19/19 Lázaro Lamas MD [address] [address] Referring Physician Hematology 10/19/19
--- OUTSIDE RECORDS SUMMARY | 2024-10-25 09:56 | XMS_ITS | Continuity of Care Document ---
Author Organization [employer] [facility] Address [address] [place] [address] Phone Care Team Providers Care Transmitter Operator Name Role Phone Austin Arzate OD Unavailable Unavailable Allergies, Adverse Reactions, Alerts Substance [...] Encounter Office/outpat ient Visit, Est [facility], [address], [place], [place], [id number], [place] tel:[phone] [address] [facility] [place] [employer], [employer] 4 Carito OD Austin. [address] [facility], [address], [place], [address], [place]. tel:[phone] Referring Provider: Austin Pedro, [address] [facility] [address], [place], [address]. tel:[phone] Formerly [facility], [address], [place], [place], [id number], [place] tel:[phone] [address] [facility] No Information 4 [employer] [facility]. [address] [facility], [facility] [address], [place], [id number] , [place]. tel:[phone] Referring Provider: Austin Pedro, [address] [facility] [address], [place], [address]. tel:[phone] ing Provider: Remberto Vargas, [address] [facility], [place], [address]. [facility] Eye [facility], [address], [place], [place], [id number], [place] tel:[phone] [address] [facility] [place] No Information 3 Carito OD Austin. [address] [facility], [address], [place], [address], [place]. tel:[phone] Referring Provider: Austin Pedro, [address] [facility] [address], [place], [address]. tel:[phone] [facility] Eye [facility], [address], [place], [place], [id number], [place] tel:[phone] [address] [facility] [place] No Information 3 Carito OD Austin. [address] [facility], [address] [place] [address], [facility], [place]. tel: [phone] Referring Provider: Austin Pedro, [address] [facility] [address] [facility], [place], [place], [facility]. [phone] Family History Family Member Type Diagnosis Age At Onset No Information Payers Payer name Insurance type Covered green party ID Kenna watkins(s) [facility] [id number] Social History Type Description Quantity Date Captured Comments Alcohol Use Details Unknown Caffeine Use Details Unknown Tobacco Use Status No Information Smoking Status Never smoker Non-Smoking Tobacco Use Details : No Details Available : No Details Available Sex Male Chief Complaint And Reason For Visit No Information Reason For Referral Reason For Referral No Information History Of Present Illness Encounter Date Complaint History Of Prese nt Illness No Information Functional Status Date Functional Assessmen t No Information Instructions Date Instruction Additional Infor uziel - Return in 1 year aubrie Arzate O.D. for Complete Exam / Contacts, [...]
--- OUTSIDE RECORDS SUMMARY | 2024-10-25 09:56 | XMS_ITS | Clinical Summary ---
Author Organization [facility] Address [address] [place] [address] [place] [address] Care Team Providers Care Internal Communications Manager Name Role Phone Bessy Fournier PA-C Primary Care Provider [phone] Allergies No known active allergies Medications lisinopriL [...] Encounters Date Type Department Care Team Description 09/27/2024 External Device Data STL ABSTRACTION Provider, Abstract 09/27/2024 External Device Data STL ABSTRACTION Provider, Abstract 09/27/2024 External Device Data STL ABSTRACTION Provider, Abstract 09/12/2024 External Device Data STL ABSTRACTION Provider, Abstract 09/05/2024 External Device Data ST[facility] ABSTRACTION Provider, Abstract 08/30/2024 External Device Data ST[facility] ABSTRACTION Provider, Abstract 08/08/2024 External Device Data ST[place] ABSTRACTION Provider, Abstract 08/04/2024 External Device Data STL ABSTRACTION Provider, Abstract 08/03/2024 External Device Data STL ABSTRACTION Provider, Abstract 08/02/2024 External Device Data STL ABSTRACTION Provider, Abstract [...] Comments Blood Pressure 164/98 04/20/2024 11:22 AM JEWELRY DRILL OPERATOR Pulse 95 04/20/2024 11:18 AM JEWELRY DRILL OPERATOR Temperature 36.7 C (98 F) 04/20/2024 11:18 AM JEWELRY DRILL OPERATOR Respiratory Rate 16 04/20/2024 11:1 8 AM JEWELRY DRILL OPERATOR Oxygen Saturation 96% 04/20/2024 11: 18 AM JEWELRY DRILL OPERATOR Inhaled Oxygen Concentration - - Weight 112.2 kg (247 lb 6.4 oz) 025 11:18 AM JEWELRY DRILL OPERATOR Height 190.5 cm (6' 3) 10/20/2021 10:2 9 AM CDT Body Mass Index 30.92 10/20/2021 10:29 AM CDT Plan of Treatment Upcoming Encounters Date Type Department Care Team (Late st Contact Info) Description 10/26/2024 11:45 AM CDT Office Visit [facility] [place] [address] [place] [address] [facility] [address] [place] [address] Lázaro Lamas MD [address] [facility] [address] [place] [address] Health Maintenance Due Date Last Done Comments Pre-Diabetes and Diabetes Screening 1967 DTAP/TDAP/TD VACCINES (1 - Tdap) 1986 HEPATITIS B VACCINES (1 of 3 - 19+ 3-dose series) 01/13 Preventative Visit-Managed Medicaid 1986 ZOSTER VACCINE (1 of 2) 2017 INFLUENZA VACCINE (#1) 2024 Insurance [employer] [place] Care Teams Internal Communications Manager Relationship Specialty Start Date End Date Bessy Fournier PA-C [address] [place] [phone] PCP - General Physician Corporate Paralegal 07/17/19
[2024-10-25 10:00] LABS: Hematocrit 46.5 % (42.0-52.0); Hemoglobin 15.8 g/dL (14.0-18.0); Immature Granulocyte Percent A 0.6 % (0-0.5); Lymphocytes Absolute Auto 2.30 K/mm3 (0.9-3.2); Mean Corpuscular HGB Conc 34.0 g/dl (32-36); Mean Corpuscular Hemoglobin 28.4 pg (26-34); Mean Corpuscular Volume 83.6 fl (80-100); Nucleated Red Blood Cells Absolute Auto 0.000 K/mm3 (0.0-0.012); Nucleated Red Blood Cells Perc 0.0 % (0.0-0.2); Platelet Count Result 291 k/mm3 (150-375); Red Blood Count 5.56 M/mm3 (4.6-6.20); White Blood Count 9.1 K/mm3 (4.5-10.0)
[2024-10-25 10:42] LABS: Alanine Aminotransferase 14 U/L (6-50); Albumin Level 4.3 g/dL (3.5-5.1); Alkaline Phosphatase 83 U/L (38-126); Anion Gap 13 mmol/L (4-12); Aspartate Amino Transferase 27 U/L (17-59); Bilirubin,Total 0.6 mg/dL (0.2-1.3); Blood Urea Nitrogen 21 mg/dL (9-20); Calcium 9.3 mg/dL (8.4-10.2); Carbon Dioxide 23 mmol/L (22-30); Chloride 103 mmol/L (98-107); Estimated Glomerular Filt Rate 59; Glucose 114 mg/dL (65-110); Potassium 3.8 mmol/L (3.4-5.0); Sodium 139 mmol/L (137-145); Total Protein 8.6 g/dL (6.3-8.2)
[2024-10-25 11:18] LABS: Carcinoembryonic Antigen 1.6 ng/mL (0.0-3.0)
== END 2024-10-25 09:50 | disposition home or self-care (01) ==
LOC: ANHLAB 09:49
PROVIDERS: PCP Physician Assistant Medical; Visit Provider Internal Medicine Hematology & Oncology
DX: C18.2 Malignant neoplasm of ascending colon (principal)
CPT/HCPCS: 36415; 80053; 82378; 85025

== ENCOUNTER 2025-02-19 15:39 | Outpatient (CLI) | payer OTHER, SELFPAY ==
[2025-02-19 15:51] LABS: Hematocrit 47.5 % (42.0-52.0); Hemoglobin 15.9 g/dL (14.0-18.0); Immature Granulocyte Percent A 0.5 % (0-0.5); Lymphocytes Absolute Auto 2.76 K/mm3 (0.9-3.2); Mean Corpuscular HGB Conc 33.5 g/dl (32-36); Mean Corpuscular Hemoglobin 28.6 pg (26-34); Mean Corpuscular Volume 85.6 fl (80-100); Nucleated Red Blood Cells Absolute Auto 0.000 K/mm3 (0.0-0.012); Nucleated Red Blood Cells Perc 0.0 % (0.0-0.2); Platelet Count Result 252 k/mm3 (150-375); Red Blood Count 5.55 M/mm3 (4.6-6.20); White Blood Count 9.7 K/mm3 (4.5-10.0)
[2025-02-19 16:41] LABS: Alanine Aminotransferase 17 U/L (6-50); Albumin Level 4.3 g/dL (3.5-5.1); Alkaline Phosphatase 85 U/L (38-126); Anion Gap 8 mmol/L (4-12); Aspartate Amino Transferase 20 U/L (17-59); Bilirubin,Total 0.9 mg/dL (0.2-1.3); Blood Urea Nitrogen 21 mg/dL (9-20); Calcium 9.3 mg/dL (8.4-10.2); Carbon Dioxide 24 mmol/L (22-30); Chloride 105 mmol/L (98-107); Estimated Glomerular Filt Rate 55; Glucose 101 mg/dL (65-110); Potassium 4.3 mmol/L (3.4-5.0); Sodium 137 mmol/L (137-145); Total Protein 8.2 g/dL (6.3-8.2)
[2025-02-19 17:17] LABS: Carcinoembryonic Antigen 1.8 ng/mL (0.0-3.0)
== END 2025-02-19 15:40 | disposition home or self-care (01) ==
LOC: ANHLAB 15:40
PROVIDERS: PCP Physician Assistant Medical; Visit Provider Internal Medicine Hematology & Oncology
DX: C18.2 Malignant neoplasm of ascending colon (principal)
CPT/HCPCS: 36415; 80053; 82378; 85025

== ENCOUNTER 2025-02-22 08:45 | Outpatient (CLI) | payer OTHER, SELFPAY ==
--- NOTE | ~2025-02-22 | CT_ITS ---
EXAMINATION: CT abdomen pelvis w con DATE: 02/22/2025 09:35 INDICATION: Malignant neoplasm of the ascending colon which is been in remission since 2020 TECHNIQUE: Computed tomography (CT) of the abdomen and pelvis was performed with 100 mL Omnipaque-350 intravenous contrast. Automated exposure control and iterative reconstruction technique were employed. The dose-length product was 954.97 mGy-cm. COMPARISON: 04/20/2024 FINDINGS: Mild dependent atelectasis in bilateral lower lobes. No suspicious pulmonary nodules or pleural effusion. Heart size is normal. Small amount of atherosclerotic coronary artery calcific location. No pericardial effusion. There are couple small gallstones in the dependent aspect of the normal gallbladder. Liver, spleen, pancreas and bilateral adrenal glands are normal. There are multiple small region of cortical scarring at both kidneys which likely sequela prior infection or infarction. Status post right hemicolectomy with ileocolic anastomosis in the right abdomen. No bowel obstruction. There are several small to moderate-sized fat-containing ventral hernias along a supraumbilical midline surgical scar. Bladder is normal. No free intraperitoneal gas or fluid. No pathologically enlarged abdominal or pelvic lymphadenopathy. Mild to moderate lumbar and lower thoracic spondylosis. Chronic mild anterior wedging of a few lower thoracic vertebral bodies. Mild to moderate right and moderate left hip osteoarthritis. IMPRESSION: 1. Right hemicolectomy with ileocolic anastomosis in the right abdomen reportedly for colon cancer. No evident residual, recurrent or metastatic disease. 2. A few small to moderate-sized fat-containing supraumbilical ventral hernias. 3. Cholelithiasis. Reviewed, dictated and finalized at location A. T BLANKER IMPRESSION: 1. Right hemicolectomy with ileocolic anastomosis in the right abdomen reported ly for colon cancer. No evident residual, recurrent or metastatic disease. 2. A few small to moderate-sized fat-containing supraumbilical ventral hernias. 3. Cholelithiasis.
== END 2025-02-22 08:46 | disposition home or self-care (01) ==
PROVIDERS: PCP Physician Assistant Medical; Visit Provider Internal Medicine Hematology & Oncology
DX: C18.2 Malignant neoplasm of ascending colon (principal); K43.9 Ventral hernia without obstruction or gangrene; K80.20 Calculus of gallbladder without cholecystitis without obstruction; Z98.0 Intestinal bypass and anastomosis status; Z90.49 Acquired absence of other specified parts of digestive tract
CPT/HCPCS: 74177; Q9967